=== PATIENT | male | born 1975 | race Caucasian/White ===

== ENCOUNTER 2016-07-03 10:06 | Emergency (ER) | payer MEDICAID ==
--- NOTE | 2016-07-03 10:31 | ER Document Report ---
ED Medical Screen (RME) - General Chief Complaint: Numbness of Arm Stated Complaint: LEFT ARM PAIN/NUMBNESS Time Seen by Provider: 07/03/16 10:28 Notes: Patient is complaining of a burning pain and numbness of the left upper arm for the past few days. Also has noticed the same sensation in the right lateral upper chest, anterior axillary line area, as well. He recalls no injury. Has never had this happen before. Patient is a type II diabetic on insulin and pills and has been out of his medication since November because he was dropped by Medicaid. Denies any vomiting or diarrhea. Denies any cough or cold or chest congestion. No chest pain. No shortness of breath or difficulty breathing. No fevers. TRAVEL OUTSIDE OF THE [place] IN LAST 30 DAYS: No COUNTRY TRAVELED TO/FROM: [facility] - Related Data Allergies/Adverse Reactions: No Known Allergies Allergy (Verified 07/03/16 10:08) Past Medical History - Past Medical History Cardiac Medical History: Reports: Hx Hypercholesterolemia, Hx Hypertension Neurological Medical History: Reports: Hx Migraine Endocrine Medical History: Reports: Hx Diabetes Mellitus Type 2 Renal/ Medical History: Denies: Hx Peritoneal Dialysis GI Medical History: Reports: Hx Gastroesophageal Reflux Disease Psychiatric Medical History: Denies: Hx Depression - Immunizations Immunizations up to date: Yes Hx Diphtheria, Pertussis, Tetanus Vaccination: No Physical Exam - Vital signs Vitals: Temp Pulse Resp BP Pulse Ox 98.0 F 89 18 135/94 H 98 07/03/16 10:08 07/03/16 10:08 07/03/16 10:08 07/03/16 10:08 07/03/16 10:08 Course - Vital Signs Vital signs: Temp Pulse Resp BP Pulse Ox 98.0 F 89 18 135/94 H 98 07/03/16 10:08 07/03/16 10:08 07/03/16 10:08 07/03/16 10:08 07/03/16 10:08
[2016-07-03 11:00] LABS: ABSOLUTE BASOPHILS # (AUTO) 0.1 10^3/uL (0.0-0.2); ABSOLUTE EOSINOPHILS # (AUTO) 0.1 10^3/uL (0.0-0.6); ABSOLUTE LYMPHOCYTES (AUTO) 3.1 10^3/uL (0.5-4.7); ABSOLUTE MONOCYTES (AUTO) 0.5 10^3/uL (0.1-1.4); ABSOLUTE NEUT (AUTO) 3.8 10^3/uL (1.7-8.2); BASOPHILS % (AUTO) 0.7 % (0-2); EOSINOPHILS % (AUTO) 1.4 % (0-6); HEMOGLOBIN 16.3 g/dL (13.5-17.0); HGB HCT DIFFERENCE 0.9; LYMPHOCYTES % (AUTO) 40.9 % (13-45); MEAN CORPUSCULAR HEMOGLOBIN 30.3 pg (27.0-33.4); MEAN CORPUSCULAR HGB CONC 33.9 g/dL (32.0-36.0); MEAN CORPUSCULAR VOLUME 89 fl (80-97); MONOCYTES % (AUTO) 6.3 % (3-13); RED BLOOD COUNT 5.37 10^6/uL (4.35-5.55); RED CELL DISTRIBUTION WIDTH 13.6 % (11.5-14.0); SEGMENTED NEUTROPHILS % (AUTO) 50.7 % (42-78); WHITE BLOOD COUNT 7.6 10^3/uL (4.0-10.5)
[2016-07-03 11:26] LABS: ALANINE AMINOTRANSFERASE 40 U/L (21-72); ALBUMIN 4.5 g/dL (3.5-5.0); ALKALINE PHOSPHATASE 75 U/L (38-126); ANION GAP 15 (5-19); ASPARTATE AMINO TRANSFERASE 20 U/L (17-59); BILIRUBIN,DIRECT 0.3 mg/dL (0.0-0.4); BILIRUBIN,TOTAL 0.6 mg/dL (0.2-1.3); BLOOD UREA NITROGEN 11 mg/dL (7-20); CALCIUM 10.2 mg/dL (8.4-10.2); CARBON DIOXIDE 23 mmol/L (22-30); CHLORIDE 100 mmol/L (98-107); CREATININE RESULT 0.56 mg/dL (0.52-1.25); MAGNESIUM 1.9 mg/dL (1.6-2.3); SODIUM 137.8 mmol/L (137-145); TOTAL PROTEIN 7.6 g/dL (6.3-8.2)
[2016-07-03 11:36] LABS: GLUCOSE 433 mg/dL (75-110)
[2016-07-03] MEDS ORDERED: INSULIN REG, HUMAN 100 UNIT/ML 3 ML VIAL (PYX) SUBCUT ONE (12:09)
[2016-07-03] MEDS ORDERED: METFORMIN HCL 500 MG TABLET PO ONE (12:39)
--- NOTE | 2016-07-03 12:43 | ER Document Report ---
ED General - General Chief Complaint: Numbness of Arm Stated Complaint: LEFT ARM PAIN/NUMBNESS Time Seen by Provider: 07/03/16 10:28 Notes: Patient presents to the emergency department with c/o burning pain, numbness to left deltoid area. Reports same feeling in the right side of his chest, axillary area. Denies trauma. Reports he is worried it is due to his DMII. Patient reports he has been out of his medication for DM and HTN since November. He just obtained his medicaid and has an appointment with Dr Garrido next week. Shortness of breath chest pain. Reports he has never had chickenpox. He denies fever vomiting diarrhea. Denies weakness. TRAVEL OUTSIDE OF THE [place] IN LAST 30 DAYS: No COUNTRY TRAVELED TO/FROM: [facility] - HPI Onset: Last week Onset/Duration: Persistent Quality of pain: Burning Pain Level: 3 - Related Data Allergies/Adverse Reactions: No Known Allergies Allergy (Verified 07/03/16 10:08) Past Medical History - General Information source: Patient - Social History Smoking Status: Current Every Day Smoker Cigarette use (# per day): Yes Frequency of alcohol use: Occasional Drug Abuse: Marijuana Lives with: Family Family History: Other - Father: CAD; Grandfather: "rare blood disorder" Patient has suicidal ideation: No Patient has homicidal ideation: No - Past Medical History Cardiac Medical History: Reports: Hx Hypercholesterolemia, Hx Hypertension Neurological Medical History: Reports: Hx Migraine Endocrine Medical History: Reports: Hx Diabetes Mellitus Type 2 Renal/ Medical History: Denies: Hx Peritoneal Dialysis GI Medical History: Reports: Hx Gastroesophageal Reflux Disease Psychiatric Medical History: Denies: Hx Depression - Immunizations Immunizations up to date: Yes Hx Diphtheria, Pertussis, Tetanus Vaccination: No Hx Pneumococcal Vaccination: 10/05/13 Review of Systems - Review of Systems Notes: Review HPI for review of systems., All other systems negative Physical Exam - Vital signs Vitals: Temp Pulse Resp BP Pulse Ox 98.0 F 89 18 135/94 H 98 07/03/16 10:08 07/03/16 10:08 07/03/16 10:08 07/03/16 10:08 07/03/16 10:08 - Notes Notes: PHYSICAL EXAMINATION: GENERAL: Well-appearing and in no acute distress HEAD: Atraumatic, normocephalic. EYES: Pupils equal round and reactive to light, extraocular movements intact, sclera anicteric, conjunctiva are normal. ENT: nares patent, oropharynx clear without exudates. Moist mucous membranes. speaks clear NECK: Normal range of motion, supple without lymphadenopathy LUNGS: CTAB and equal. No wheezes rales or rhonchi. HEART: Regular rate and rhythm without murmurs ABDOMEN: Soft, no tenderness. No guarding, no rebound EXTREMITIES: Normal range of motion, no pitting edema. No cyanosis. 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 Normal sensory/motor exams. PSYCH: Normal mood, normal affect. 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 He reports he usually runs between 250-350, if he gets below 250 he doesn't feel good. Consulted dr ardon per apc guidelines, he advised insulin. pt came to nurses station reports he needs to leave due to a family emegency. Will treat pt with some SQ Insulin, provide with prescriptions for medication until he can be treated by dr garrido next thursday. Pt verbalized understanding oF Plan of care and agrees, Dr ardon updated and agrees with plan. - Vital Signs Vital signs: Temp Pulse Resp BP Pulse Ox 97.9 F 77 18 144/98 H 98 07/03/16 13:03 07/03/16 13:03 07/03/16 10:09 07/03/16 13:03 07/03/16 13:03 - Laboratory Result Diagrams: 07/03/16 10:30 07/03/16 10:30 Laboratory results interpreted by me: 07/03/16 10:30 Glucose 433 H* Discharge - Discharge Clinical Impression: parathesia left outer arm, Hyperglycemia due to type 1 diabetes mellitus, History of high blood pressure Condition: Stable Disposition: HOME, SELF-CARE Instructions: Diabetes ([facility]), High Blood Pressure ([facility]), Insulin ([facility]), Glucophage ([facility]) Additional Instructions: *You have been evaluated for feeling of numbness to your left outer arm, hyperglycemia with history of diabetes *Take medication as prescribed *Monitor your blood pressure and glucose *Follow up with Dr Garrido as scheduled *Return to ED for worsening condition, changes, needs Prescriptions: Lisinopril [Prinivil 2.5 mg Tablet] 2.5 mg PO DAILY #15 tablet Metformin HCl 1,000 mg PO BID #30 tablet NPH, Human Insulin Isophane [Novolin N (NPH) Insulin 100 unit/mL] 35 unit SUBCUT BID #100 ml Forms: Elevated Blood Pressure, Return to School
[2016-07-03 13:08] VITALS: BP 144/98
== END 2016-07-03 13:13 | disposition home or self-care (01) ==
LOC: ER 10:06
DX: R20.2 Paresthesia of skin (principal); E10.65 Type 1 diabetes mellitus with hyperglycemia; I10 Essential (primary) hypertension; Z91.14 Patient's other noncompliance with medication regimen; R20.0 Anesthesia of skin; F17.210 Nicotine dependence, cigarettes, uncomplicated
CPT/HCPCS: 99284; 36415; 83735; 85025; 80053; J3490

== ENCOUNTER 2016-07-29 12:43 | Emergency (ER) | payer MEDICAID ==
[2016-07-29] MEDS ORDERED: OXYCODONE-ACETAMINOPHEN 5-325 MG TABLET PO ONE (13:56)
--- NOTE | 2016-07-29 14:01 | ER Document Report ---
ED Medical Screen (RME) - General Chief Complaint: Chest Pain Stated Complaint: CHEST PAIN Time Seen by Provider: 07/29/16 13:53 Mode of Arrival: Ambulatory Information source: Patient Notes: Patient is a 41-year-old male with diabetes, hypertension, hyperlipidemia and GERD who presents to the ER today for chest pain that started yesterday. Patient states that it is sharp in nature and comes and goes, give him some nausea but he denies any shortness of breath, cough, fever, chills, recent illness. He denies history of heart attack or stroke. TRAVEL OUTSIDE OF THE [place] IN LAST 30 DAYS: No COUNTRY TRAVELED TO/FROM: [facility] - Related Data Allergies/Adverse Reactions: No Known Allergies Allergy (Verified 07/29/16 12:57) Past Medical History - General Information source: Patient - Social History Chew tobacco use (# tins/day): No Frequency of alcohol use: None Drug Abuse: None - Past Medical History Cardiac Medical History: Reports: Hx Hypercholesterolemia, Hx Hypertension Neurological Medical History: Reports: Hx Migraine Endocrine Medical History: Reports: Hx Diabetes Mellitus Type 2 Renal/ Medical History: Denies: Hx Peritoneal Dialysis GI Medical History: Reports: Hx Gastroesophageal Reflux Disease Psychiatric Medical History: Denies: Hx Depression - Immunizations Immunizations up to date: Yes Hx Diphtheria, Pertussis, Tetanus Vaccination: No Review of Systems - Review of Systems Cardiovascular: No symptoms reported Respiratory: No symptoms reported Gastrointestinal: No symptoms reported Physical Exam - Vital signs Vitals: Temp Pulse Resp BP Pulse Ox 98.1 F 76 20 122/81 98 07/29/16 12:57 07/29/16 12:57 07/29/16 12:57 07/29/16 12:57 07/29/16 12:57 - Notes Notes: PHYSICAL EXAMINATION: GENERAL:uncomfortable, but in no acute distress. LUNGS: CTAB and equal. No wheezes rales or rhonchi. HEART: Regular rate and rhythm without murmurs Course - Vital Signs Vital signs: Temp Pulse Resp BP Pulse Ox 98.1 F 76 16 122/81 98 07/29/16 12:57 07/29/16 12:57 07/29/16 13:44 07/29/16 12:57 07/29/16 12:57
[2016-07-29 14:30] LABS: ABSOLUTE EOSINOPHILS # (AUTO) 0.1 10^3/uL (0.0-0.6); ABSOLUTE LYMPHOCYTES (AUTO) 3.1 10^3/uL (0.5-4.7); ABSOLUTE MONOCYTES (AUTO) 0.5 10^3/uL (0.1-1.4); ABSOLUTE NEUT (AUTO) 4.1 10^3/uL (1.7-8.2); BASOPHILS % (AUTO) 0.6 % (0-2); EOSINOPHILS % (AUTO) 1.9 % (0-6); HEMATOCRIT 43.7 % (37.9-51.0); HEMOGLOBIN 14.5 g/dL (13.5-17.0); HGB HCT DIFFERENCE -0.2; LYMPHOCYTES % (AUTO) 39.1 % (13-45); MEAN CORPUSCULAR HEMOGLOBIN 29.4 pg (27.0-33.4); MEAN CORPUSCULAR HGB CONC 33.3 g/dL (32.0-36.0); MEAN CORPUSCULAR VOLUME 88 fl (80-97); MONOCYTES % (AUTO) 6.9 % (3-13); RED BLOOD COUNT 4.94 10^6/uL (4.35-5.55); RED CELL DISTRIBUTION WIDTH 13.5 % (11.5-14.0); SEGMENTED NEUTROPHILS % (AUTO) 51.5 % (42-78); WHITE BLOOD COUNT 7.9 10^3/uL (4.0-10.5)
[2016-07-29 14:47] LABS: ALANINE AMINOTRANSFERASE 23 U/L (21-72); ALBUMIN 3.9 g/dL (3.5-5.0); ALKALINE PHOSPHATASE 57 U/L (38-126); ANION GAP 10 (5-19); ASPARTATE AMINO TRANSFERASE 13 U/L (17-59); BILIRUBIN,DIRECT 0.3 mg/dL (0.0-0.4); BILIRUBIN,TOTAL 0.5 mg/dL (0.2-1.3); BLOOD UREA NITROGEN 8 mg/dL (7-20); CALCIUM 9.3 mg/dL (8.4-10.2); CARBON DIOXIDE 28 mmol/L (22-30); CHLORIDE 103 mmol/L (98-107); CREATINE KINASE 47 U/L (55-170); CREATININE RESULT 0.55 mg/dL (0.52-1.25); GLUCOSE 170 mg/dL (75-110); LIPASE 79.9 U/L (23-300); POTASSIUM 4.3 mmol/L (3.6-5.0); SODIUM 140.9 mmol/L (137-145); TOTAL PROTEIN 7.1 g/dL (6.3-8.2)
[2016-07-29 14:59] LABS: CREATINE KINASE MB 0.24 ng/mL (<4.55)
[2016-07-29 15:00] LABS: TROPONIN I < 0.012 ng/mL
--- NOTE | 2016-07-29 15:02 | RADIOLOGY REPORT (SQ) ---
EXAM DESCRIPTION: CHEST SINGLE VIEW COMPLETED DATE/TIME: 07/29/2016 2:18 pm REASON FOR STUDY: chest pain COMPARISON: 12/31/2015. EXAM PARAMETERS: NUMBER OF VIEWS: One view. TECHNIQUE: Single frontal radiographic view of the chest acquired. RADIATION DOSE: NA LIMITATIONS: None. FINDINGS: LUNGS AND PLEURA: No opacities, masses or pneumothorax. No pleural effusion. MEDIASTINUM AND HILAR STRUCTURES: No masses. Contour normal. HEART AND VASCULAR STRUCTURES: Heart normal in size. Normal vasculature. BONES: No acute findings. HARDWARE: None in the chest. OTHER: No other significant finding. IMPRESSION: NO ACUTE RADIOGRAPHIC FINDING IN THE CHEST. TECHNICAL DOCUMENTATION: JOB ID: [id number]
[2016-07-29] MEDS ORDERED: METOCLOPRAMIDE HCL ORAL SOLN 10 MG/10 ML UDCUP PO ONE (15:13)
[2016-07-29] MEDS ORDERED: LIDOCAINE 2% VISCOUS SOLN 20 ML UDCUP PO ONE (15:13)
[2016-07-29] MEDS ORDERED: MAG HYDROX/AL HYDROX/SIMETH SUSP 30 ML UDCUP PO ONE (15:13)
--- NOTE | 2016-07-29 15:13 | ER Document Report ---
ED Cardiac - General Chief Complaint: Chest Pain Stated Complaint: CHEST PAIN Time Seen by Provider: 07/29/16 13:53 Mode of Arrival: Ambulatory Information source: Patient Notes: Patient is a 41-year-old male with hypertension, diabetes, hyperlipidemia, GERD who presents to the ER today for chest pain that began yesterday, intermittent and sharp in nature in the center of his chest causing some nausea. He denies any vomiting, shortness of breath, radiation of the pain anywhere. He states he has been under a lot of stress recently. He denies any history of heart attack or stroke. He does take his medications regularly, but did not take them today because of the nausea. TRAVEL OUTSIDE OF THE [place] IN LAST 30 DAYS: No COUNTRY TRAVELED TO/FROM: [facility] - Related Data Allergies/Adverse Reactions: No Known Allergies Allergy (Verified 07/29/16 12:57) Past Medical History - General Information source: Patient - Social History Smoking Status: Never Smoker Chew tobacco use (# tins/day): No Frequency of alcohol use: None Drug Abuse: None Family History: Other - Father: CAD; Grandfather: "rare blood disorder" Patient has suicidal ideation: No Patient has homicidal ideation: No - Past Medical History Cardiac Medical History: Reports: Hx Hypercholesterolemia, Hx Hypertension Neurological Medical History: Reports: Hx Migraine Endocrine Medical History: Reports: Hx Diabetes Mellitus Type 2 Renal/ Medical History: Denies: Hx Peritoneal Dialysis GI Medical History: Reports: Hx Gastroesophageal Reflux Disease Psychiatric Medical History: Denies: Hx Depression - Immunizations Immunizations up to date: Yes Hx Diphtheria, Pertussis, Tetanus Vaccination: No Hx Pneumococcal Vaccination: 10/05/13 Review of Systems - Review of Systems Constitutional: No symptoms reported EENT: No symptoms reported Cardiovascular: See HPI Respiratory: No symptoms reported Gastrointestinal: See HPI Genitourinary: No symptoms reported Male Genitourinary: No symptoms reported Musculoskeletal: No symptoms reported Skin: No symptoms reported Hematologic/Lymphatic: No symptoms reported Neurological/Psychological: No symptoms reported Physical Exam - Vital signs Vitals: Temp Pulse Resp BP Pulse Ox 98.1 F 76 20 122/81 98 07/29/16 12:57 07/29/16 12:57 07/29/16 12:57 07/29/16 12:57 07/29/16 12:57 - Notes Notes: PHYSICAL EXAMINATION: GENERAL: Mildly uncomfortable, but in no acute distress. HEAD: Atraumatic, normocephalic. EYES: Pupils equal round and reactive to light, extraocular movements intact, sclera anicteric, conjunctiva are normal. NECK: Normal range of motion, supple without lymphadenopathy LUNGS: CTAB and equal. No wheezes rales or rhonchi. HEART: Regular rate and rhythm without murmurs ABDOMEN: Soft, mild epigastric tenderness. No guarding, no rebound BACK: no vertebral tenderness, normal ROM GI/: no CVA tenderness EXTREMITIES: Normal range of motion, no pitting edema. No cyanosis. NEUROLOGICAL: Cranial nerves grossly intact. Normal sensory/motor exams. PSYCH: Normal mood, normal affect. SKIN: Warm, Dry, normal turgor, no rashes or lesions noted Course - Re-evaluation Re-evalutation: 07/29/16 16:31 Lab work is unremarkable today including normal cardiac enzymes, EKG revealing normal sinus rhythm with no evidence of ischemia, chest x-ray without acute abnormality, patient is completely chest pain-free after GI cocktail. Patient does not want to stay here even though he has never had a stress test and has risk factors for cardiac disease. He would like to go home and treat GERD, stomach ulcer. I did advise him that with his risk factors For cardiac disease , it may be advisable to stay in the hospital, but he declines. He states with any worsening symptoms he will return immediately. - Vital Signs Vital signs: Temp Pulse Resp BP Pulse Ox 98.1 F 76 16 122/81 98 07/29/16 12:57 07/29/16 12:57 07/29/16 13:44 07/29/16 12:57 07/29/16 12:57 - Laboratory Result Diagrams: 07/29/16 14:00 07/29/16 14:00 Laboratory results interpreted by me: 07/29/16 07/29/16 14:00 15:22 Glucose 170 H AST 13 L Creatine Kinase 47 L Urine Glucose (UA) 150 H Urine Urobilinogen 2.0 H Discharge - Discharge Clinical Impression: Epigastric pain Chest pain Qualifiers: Chest pain type: unspecified Qualified Code(s): R07.9 - Chest pain, unspecified Condition: Stable Disposition: HOME, SELF-CARE Instructions: Reflux Disease (GERD) ([facility]) Additional Instructions: Return immediately for any new or worsening symptoms. Follow up with primary care provider, call tomorrow to make followup appointment. Prescriptions: Omeprazole Magnesium [Prilosec Otc] 20 mg PO BID #20 tablet. Sucralfate [Carafate 1 gm Tablet] 1 gm PO ACHS #40 tablet Forms: Return to Work
[2016-07-29 15:38] LABS: APPEARANCE,URINE CLEAR; BILIRUBIN,URINE NEGATIVE (NEGATIVE); GLUCOSE, URINE 150 mg/dL (NEGATIVE); KETONES,URINE NEGATIVE (NEGATIVE); LEUKOCYTE ESTERASE,URINE NEGATIVE (NEGATIVE); NITRITE,URINE NEGATIVE (NEGATIVE); PROTEIN,URINE NEGATIVE (NEGATIVE); URINE SPECIFIC GRAVITY 1.018
[2016-07-29 15:50] LABS: URINE BARBITURATES SCREEN NEGATIVE; URINE METHADONE SCREEN NEGATIVE; URINE OPIATES LOW NEGATIVE; URINE PHENCYCLIDINE SCREEN NEGATIVE
[2016-07-29] MEDS ORDERED: FAMOTIDINE 20 MG TABLET PO ONE (16:25)
[2016-07-29] MEDS ORDERED: SUCRALFATE 1 GM TABLET PO ONE (16:25)
[2016-07-29 17:07] VITALS: BP 145/105
--- NOTE | 2016-07-29 22:37 | EKG REPORT ---
SEVERITY:- NORMAL ECG - SINUS RHYTHM : Confirmed by: Lurdes Hightower 29-Jul-2016 22:36:18
== END 2016-07-29 17:07 | disposition home or self-care (01) ==
LOC: ER 12:43
DX: R10.13 Epigastric pain (principal); R07.9 Chest pain, unspecified; I10 Essential (primary) hypertension; E11.9 Type 2 diabetes mellitus without complications; E78.5 Hyperlipidemia, unspecified; K21.9 Gastro-esophageal reflux disease without esophagitis
CPT/HCPCS: 93005; 99285; 36415; 82553; 82550; 83690; 85025; 80053; 81001; 84484; 80307; 71010; 93010; J3490 ×5

== ENCOUNTER 2016-09-05 12:42 | Emergency (ER) | payer MEDICAID ==
[2016-09-05] MEDS ORDERED: ASPIRIN 81 MG TABLET, CHEWABLE PO ONE (14:42)
--- NOTE | 2016-09-05 14:43 | ER Document Report ---
ED Medical Screen (RME) - General Chief Complaint: Chest Pain Stated Complaint: BODY PAIN Time Seen by Provider: 09/05/16 14:12 Mode of Arrival: Medic Information source: Patient Notes: Patient presents complaining of generalized body pain for several months. Patient does complain of chest pain that started yesterday. Patient does report some mild shortness of breath with nausea. Patient states he last vomited yesterday. Patient does state that he has felt faint yesterday. hx: Tension, diabetes, dyslipidemia TRAVEL OUTSIDE OF THE [place] IN LAST 30 DAYS: No COUNTRY TRAVELED TO/FROM: [facility] - Related Data Allergies/Adverse Reactions: No Known Allergies Allergy (Verified 09/05/16 12:52) Past Medical History - Social History Frequency of alcohol use: None Drug Abuse: None - Past Medical History Cardiac Medical History: Reports: Hx Hypercholesterolemia, Hx Hypertension Neurological Medical History: Reports: Hx Migraine Endocrine Medical History: Reports: Hx Diabetes Mellitus Type 2 Renal/ Medical History: Denies: Hx Peritoneal Dialysis GI Medical History: Reports: Hx Gastroesophageal Reflux Disease Psychiatric Medical History: Denies: Hx Depression - Immunizations Immunizations up to date: Yes Hx Diphtheria, Pertussis, Tetanus Vaccination: No Physical Exam - Vital signs Vitals: Temp Pulse Resp BP Pulse Ox 98.1 F 98 18 137/101 H 99 09/05/16 12:52 09/05/16 12:52 09/05/16 12:52 09/05/16 12:52 09/05/16 12:52 - Cardiovascular Rhythm: Regular Heart sounds: S1 appreciated, S2 appreciated Course - Vital Signs Vital signs: Temp Pulse Resp BP Pulse Ox 98.1 F 98 18 137/101 H 99 09/05/16 12:52 09/05/16 12:52 09/05/16 12:52 09/05/16 12:52 09/05/16 12:52
[2016-09-05 15:36] LABS: ABSOLUTE EOSINOPHILS # (AUTO) 0.1 10^3/uL (0.0-0.6); ABSOLUTE LYMPHOCYTES (AUTO) 3.1 10^3/uL (0.5-4.7); ABSOLUTE MONOCYTES (AUTO) 0.5 10^3/uL (0.1-1.4); ABSOLUTE NEUT (AUTO) 3.7 10^3/uL (1.7-8.2); BASOPHILS % (AUTO) 0.4 % (0-2); EOSINOPHILS % (AUTO) 1.9 % (0-6); HEMATOCRIT 45.4 % (37.9-51.0); HEMOGLOBIN 15.5 g/dL (13.5-17.0); HGB HCT DIFFERENCE 1.1; LYMPHOCYTES % (AUTO) 41.2 % (13-45); MEAN CORPUSCULAR HEMOGLOBIN 29.6 pg (27.0-33.4); MEAN CORPUSCULAR HGB CONC 34.2 g/dL (32.0-36.0); MEAN CORPUSCULAR VOLUME 87 fl (80-97); MONOCYTES % (AUTO) 6.5 % (3-13); RED BLOOD COUNT 5.25 10^6/uL (4.35-5.55); RED CELL DISTRIBUTION WIDTH 13.1 % (11.5-14.0); WHITE BLOOD COUNT 7.4 10^3/uL (4.0-10.5)
--- NOTE | 2016-09-05 15:46 | RADIOLOGY REPORT (SQ) ---
EXAM DESCRIPTION: CHEST PA/LAT COMPLETED DATE/TIME: 09/05/2016 3:32 pm REASON FOR STUDY: cp COMPARISON: December 2015 EXAM PARAMETERS: NUMBER OF VIEWS: two views TECHNIQUE: Digital Frontal and Lateral radiographic views of the chest acquired. RADIATION DOSE: NA LIMITATIONS: none FINDINGS: LUNGS AND PLEURA: No opacities, masses or pneumothorax. No pleural effusion. MEDIASTINUM AND HILAR STRUCTURES: No masses or contour abnormalities. HEART AND VASCULAR STRUCTURES: Heart normal size. No evidence for failure. BONES: No acute findings. HARDWARE: None in the chest. OTHER: No other significant finding. IMPRESSION: NO SIGNIFICANT RADIOGRAPHIC FINDING IN THE CHEST. TECHNICAL DOCUMENTATION: JOB ID: [id number] [email or web address]- All Rights Reserved
[2016-09-05 15:54] LABS: ALANINE AMINOTRANSFERASE 29 U/L (21-72); ALBUMIN 4.3 g/dL (3.5-5.0); ALKALINE PHOSPHATASE 45 U/L (38-126); ANION GAP 11 (5-19); ASPARTATE AMINO TRANSFERASE 12 U/L (17-59); BILIRUBIN,DIRECT 0.3 mg/dL (0.0-0.4); BILIRUBIN,TOTAL 0.7 mg/dL (0.2-1.3); BLOOD UREA NITROGEN 8 mg/dL (7-20); CARBON DIOXIDE 30 mmol/L (22-30); CHLORIDE 102 mmol/L (98-107); CREATINE KINASE 46 U/L (55-170); CREATININE RESULT 0.67 mg/dL (0.52-1.25); GLUCOSE 104 mg/dL (75-110); MAGNESIUM 2.2 mg/dL (1.6-2.3); POTASSIUM 4.4 mmol/L (3.6-5.0); SODIUM 143.2 mmol/L (137-145); TOTAL PROTEIN 7.6 g/dL (6.3-8.2)
[2016-09-05 16:11] LABS: CREATINE KINASE MB < 0.22 ng/mL (<4.55); TROPONIN I < 0.012 ng/mL
--- NOTE | 2016-09-05 16:50 | ER Document Report ---
ED Cardiac - General Chief Complaint: Chest Pain Stated Complaint: BODY PAIN Time Seen by Provider: 09/05/16 14:12 Mode of Arrival: Medic Information source: Patient Notes: Patient is a 41-year-old male who presents to the ER today for all over body pain including neuropathy, going up to his lower abdomen, going up his chest, going up to his head, going into his arms. Patient has had this going on for 1 month but states it is worsening. His primary care provider has already started him on gabapentin and has increased the dosage multiple times tried to control his symptoms. Patient has a history of heart attack or stroke. He does admit to some shortness of breath and some nausea. TRAVEL OUTSIDE OF THE [place] IN LAST 30 DAYS: No COUNTRY TRAVELED TO/FROM: [facility] - Related Data Allergies/Adverse Reactions: No Known Allergies Allergy (Verified 09/05/16 12:52) Past Medical History - General Information source: Patient - Social History Smoking Status: Never Smoker Frequency of alcohol use: None Drug Abuse: None Family History: Other - Father: CAD; Grandfather: "rare blood disorder" - Past Medical History Cardiac Medical History: Reports: Hx Hypercholesterolemia, Hx Hypertension Neurological Medical History: Reports: Hx Migraine Endocrine Medical History: Reports: Hx Diabetes Mellitus Type 2 Renal/ Medical History: Denies: Hx Peritoneal Dialysis GI Medical History: Reports: Hx Gastroesophageal Reflux Disease Psychiatric Medical History: Denies: Hx Depression - Immunizations Immunizations up to date: Yes Hx Diphtheria, Pertussis, Tetanus Vaccination: No Hx Pneumococcal Vaccination: 10/05/13 Review of Systems - Review of Systems Constitutional: No symptoms reported EENT: No symptoms reported Cardiovascular: See HPI Respiratory: No symptoms reported Gastrointestinal: No symptoms reported Genitourinary: No symptoms reported Male Genitourinary: No symptoms reported Musculoskeletal: No symptoms reported Skin: No symptoms reported Hematologic/Lymphatic: No symptoms reported Neurological/Psychological: No symptoms reported Physical Exam - Vital signs Vitals: Temp Pulse Resp BP Pulse Ox 98.1 F 98 18 137/101 H 99 09/05/16 12:52 09/05/16 12:52 09/05/16 12:52 09/05/16 12:52 09/05/16 12:52 - Notes Notes: PHYSICAL EXAMINATION: GENERAL: Appears uncomfortable, but in no acute distress. HEAD: Atraumatic, normocephalic. EYES: Pupils equal round and reactive to light, extraocular movements intact, sclera anicteric, conjunctiva are normal. ENT: ear canals without erythema or foreign body, TMs pearly duran with good bony landmarks, nares patent, oropharynx clear without exudates. Moist mucous membranes. NECK: Normal range of motion, supple without lymphadenopathy LUNGS: CTAB and equal. No wheezes rales or rhonchi. HEART: Regular rate and rhythm without murmurs ABDOMEN: Soft, no tenderness. No guarding, no rebound BACK: no vertebral tenderness, normal ROM GI/: no CVA tenderness EXTREMITIES: No tenderness to lower extremities at all, good and equal pulses to all extremities, normal range of motion, no pitting edema. No cyanosis. NEUROLOGICAL: Cranial nerves grossly intact. Normal sensory/motor exams. PSYCH: Normal mood, normal affect. SKIN: Warm, Dry, normal turgor, no rashes or lesions noted Course - Re-evaluation Re-evalutation: 09/05/16 17:24 09/05/16 17:25 Lab work is completely unremarkable today including normal cardiac enzymes, EKG reveals a normal sinus rhythm at a rate of 68 bpm. Patient is complaining of chronic pain as well as all over body pain. I have no explanation for his symptoms except for his neuropathy today. His cardiac workup is negative. I have advised him to follow-up with his primary care provider. He is unhappy with this but is stable for discharge. - Vital Signs Vital signs: Temp Pulse Resp BP Pulse Ox 97.6 F 70 16 141/97 H 97 09/05/16 17:25 09/05/16 17:25 09/05/16 17:25 09/05/16 17:25 09/05/16 17:25 - Laboratory Result Diagrams: 09/05/16 15:22 09/05/16 15:22 Laboratory results interpreted by me: 09/05/16 15:22 AST 12 L Creatine Kinase 46 L Discharge - Discharge Clinical Impression: Neuropathy Pain, chronic Qualifiers: Chronic pain type: other chronic pain Qualified Code(s): G89.29 - Other chronic pain Chest pain Qualifiers: Chest pain type: unspecified Qualified Code(s): R07.9 - Chest pain, unspecified Condition: Stable Disposition: HOME, SELF-CARE Additional Instructions: Return immediately for any new or worsening symptoms. Follow up with primary care provider, call tomorrow to make followup appointment. Referrals: LIZZY KESSLER, DO [Primary Care Provider] - Follow up as needed
[2016-09-05] MEDS ORDERED: KETOROLAC TROMETHAMINE INJ/PF 30 MG/1 ML SDV IV ONE (17:20)
[2016-09-05] MEDS ORDERED: MAG HYDROX/AL HYDROX/SIMETH SUSP 30 ML UDCUP PO ONE (17:27)
[2016-09-05] MEDS ORDERED: METOCLOPRAMIDE HCL ORAL SOLN 10 MG/10 ML UDCUP PO ONE (17:27)
[2016-09-05] MEDS ORDERED: LIDOCAINE 2% VISCOUS SOLN 20 ML UDCUP PO ONE (17:27)
[2016-09-05 17:28] VITALS: BP 141/97
--- NOTE | 2016-09-07 13:45 | EKG REPORT ---
SEVERITY:- NORMAL ECG - SINUS RHYTHM : Confirmed by: Harriet Lyons MD 07-Sep-2016 13:45:17
== END 2016-09-05 17:53 | disposition home or self-care (01) ==
LOC: ER 12:42
DX: G62.9 Polyneuropathy, unspecified (principal); R07.9 Chest pain, unspecified; G89.29 Other chronic pain; E78.00 Pure hypercholesterolemia, unspecified; I10 Essential (primary) hypertension; E11.9 Type 2 diabetes mellitus without complications; K21.9 Gastro-esophageal reflux disease without esophagitis
CPT/HCPCS: 93005; 99285; 96374; 36415; 82553; 82550; 83735; 85025; 80053; 84484; 71020; 93010; J3490 ×3; J1885

== ENCOUNTER 2016-09-08 16:03 | Emergency (ER) | payer MEDICAID ==
[2016-09-08] MEDS ORDERED: ASPIRIN 325 MG TABLET PO ONE (16:36)
--- NOTE | 2016-09-08 16:38 | ER Document Report ---
ED Medical Screen (RME) - General Chief Complaint: Chest Pain Stated Complaint: CHEST PAIN Time Seen by Provider: 09/08/16 16:33 Mode of Arrival: Wheelchair Information source: Patient TRAVEL OUTSIDE OF THE [place] IN LAST 30 DAYS: No COUNTRY TRAVELED TO/FROM: [facility] Patient complains to provider of: cp Onset: Other - pt with multiple cardiac risk factors with intermittent cp for the past several days. Saw his PCP today who recommended [facility]. - Related Data Allergies/Adverse Reactions: No Known Allergies Allergy (Verified 09/08/16 16:14) Past Medical History - Past Medical History Cardiac Medical History: Reports: Hx Hypercholesterolemia, Hx Hypertension Neurological Medical History: Reports: Hx Migraine Endocrine Medical History: Reports: Hx Diabetes Mellitus Type 2 Renal/ Medical History: Denies: Hx Peritoneal Dialysis GI Medical History: Reports: Hx Gastroesophageal Reflux Disease Psychiatric Medical History: Denies: Hx Depression - Immunizations Immunizations up to date: Yes Hx Diphtheria, Pertussis, Tetanus Vaccination: No Physical Exam - Vital signs Vitals: Temp Pulse Resp BP Pulse Ox 97.6 F 91 18 144/107 H 100 09/08/16 16:17 09/08/16 16:17 09/08/16 16:17 09/08/16 16:17 09/08/16 16:17 Course - Vital Signs Vital signs: Temp Pulse Resp BP Pulse Ox 97.6 F 91 18 144/107 H 100 09/08/16 16:17 09/08/16 16:17 09/08/16 16:17 09/08/16 16:17 09/08/16 16:17
[2016-09-08 17:04] LABS: ABSOLUTE BASOPHILS # (AUTO) 0.1 10^3/uL (0.0-0.2); ABSOLUTE EOSINOPHILS # (AUTO) 0.1 10^3/uL (0.0-0.6); ABSOLUTE LYMPHOCYTES (AUTO) 3.1 10^3/uL (0.5-4.7); ABSOLUTE MONOCYTES (AUTO) 0.5 10^3/uL (0.1-1.4); ABSOLUTE NEUT (AUTO) 4.6 10^3/uL (1.7-8.2); BASOPHILS % (AUTO) 0.6 % (0-2); EOSINOPHILS % (AUTO) 1.6 % (0-6); HEMATOCRIT 49.9 % (37.9-51.0); HEMOGLOBIN 16.9 g/dL (13.5-17.0); HGB HCT DIFFERENCE 0.8; LYMPHOCYTES % (AUTO) 36.6 % (13-45); MEAN CORPUSCULAR HEMOGLOBIN 29.7 pg (27.0-33.4); MEAN CORPUSCULAR HGB CONC 33.9 g/dL (32.0-36.0); MEAN CORPUSCULAR VOLUME 88 fl (80-97); MONOCYTES % (AUTO) 6.5 % (3-13); RED BLOOD COUNT 5.68 10^6/uL (4.35-5.55); RED CELL DISTRIBUTION WIDTH 13.2 % (11.5-14.0); SEGMENTED NEUTROPHILS % (AUTO) 54.7 % (42-78); WHITE BLOOD COUNT 8.4 10^3/uL (4.0-10.5)
--- NOTE | 2016-09-08 17:07 | RADIOLOGY REPORT (SQ) ---
EXAM DESCRIPTION: CHEST PA/LAT COMPLETED DATE/TIME: 09/08/2016 4:55 pm REASON FOR STUDY: cp COMPARISON: 09/05/2016. EXAM PARAMETERS: NUMBER OF VIEWS: two views TECHNIQUE: Digital Frontal and Lateral radiographic views of the chest acquired. RADIATION DOSE: NA LIMITATIONS: none FINDINGS: LUNGS AND PLEURA: No opacities, masses or pneumothorax. No pleural effusion. MEDIASTINUM AND HILAR STRUCTURES: No masses or contour abnormalities. HEART AND VASCULAR STRUCTURES: Heart normal size. No evidence for failure. BONES: No acute findings. HARDWARE: None in the chest. OTHER: No other significant finding. IMPRESSION: NO SIGNIFICANT RADIOGRAPHIC FINDING IN THE CHEST. TECHNICAL DOCUMENTATION: JOB ID: [id number] [employer]- All Rights Reserved
[2016-09-08 17:22] LABS: ALANINE AMINOTRANSFERASE 27 U/L (21-72); ALBUMIN 4.8 g/dL (3.5-5.0); ALKALINE PHOSPHATASE 51 U/L (38-126); ANION GAP 16 (5-19); ASPARTATE AMINO TRANSFERASE 12 U/L (17-59); BILIRUBIN,DIRECT 0.3 mg/dL (0.0-0.4); BILIRUBIN,TOTAL 0.7 mg/dL (0.2-1.3); BLOOD UREA NITROGEN 9 mg/dL (7-20); CALCIUM 10.4 mg/dL (8.4-10.2); CARBON DIOXIDE 24 mmol/L (22-30); CHLORIDE 103 mmol/L (98-107); CREATINE KINASE 41 U/L (55-170); CREATININE RESULT 0.68 mg/dL (0.52-1.25); GLUCOSE 127 mg/dL (75-110); POTASSIUM 4.6 mmol/L (3.6-5.0); SODIUM 142.8 mmol/L (137-145); TOTAL PROTEIN 8.2 g/dL (6.3-8.2)
[2016-09-08 17:42] LABS: CREATINE KINASE MB < 0.22 ng/mL (<4.55); TROPONIN I < 0.012 ng/mL
--- NOTE | 2016-09-08 18:42 | ER Document Report ---
ED Cardiac - General Chief Complaint: Chest Pain Stated Complaint: CHEST PAIN Time Seen by Provider: 09/08/16 16:33 Mode of Arrival: Wheelchair Notes: The patient is a 41-year-old male, past medical history diabetes, chronic back pain, presents with several weeks of substernal chest pressure. He was instructed by his primary care physician to come the emergency room for further evaluation and treatment. He is taking Naprosyn 500 mg twice daily without much relief of his symptoms. He denies shortness of breath, leg swelling, cough , nausea, vomiting, upper back pain, fevers, numbness or tingling. TRAVEL OUTSIDE OF THE [place] IN LAST 30 DAYS: No COUNTRY TRAVELED TO/FROM: [facility] - Related Data Allergies/Adverse Reactions: No Known Allergies Allergy (Verified 09/08/16 16:14) Home Medications: Current Home Medications Atorvastatin Calcium 20 mg PO DAILY 09/08/16 [History] Gabapentin 900 mg PO TID 09/08/16 [History] Hum Insulin NPH/Reg Insulin Hm [Insulin 70-30 (NPH/Reg) 100 unit/mL] 42 unit SUBCUT BIDACBS 09/08/16 [History] Hydrocodone Bit/Acetaminophen [Hydrocodon-Acetaminophen 5-325] 1 each PO Q8H PRN 09/08/16 [History] Insulin Lispro [Humalog] 100 unit SQ TID 09/08/16 [History] Naproxen 500 mg PO Q8H 09/08/16 [History] Past Medical History - General Information source: Patient - Social History Smoking Status: Never Smoker Chew tobacco use (# tins/day): No Frequency of alcohol use: None Drug Abuse: None Family History: Other - Father: CAD; Grandfather: "rare blood disorder" - Past Medical History Cardiac Medical History: Reports: Hx Hypercholesterolemia, Hx Hypertension Neurological Medical History: Reports: Hx Migraine Endocrine Medical History: Reports: Hx Diabetes Mellitus Type 2 Renal/ Medical History: Denies: Hx Peritoneal Dialysis GI Medical History: Reports: Hx Gastroesophageal Reflux Disease Psychiatric Medical History: Denies: Hx Depression - Immunizations Immunizations up to date: Yes Hx Diphtheria, Pertussis, Tetanus Vaccination: No Hx Pneumococcal Vaccination: 10/05/13 Review of Systems - Review of Systems Notes: REVIEW OF SYSTEMS: CONSTITUTIONAL: -fevers, -chills EENT: -eye pain, -difficulty swallowing, -nasal congestion CARDIOVASCULAR: +chest pain, -syncope. RESPIRATORY: -cough, -SOB GASTROINTESTINAL: -abdominal pain, - nausea, -vomiting, -diarrhea GENITOURINARY: -dysuria, -hematuria MUSCULOSKELETAL: -back pain, -neck pain SKIN: -rash or skin lesions. HEMATOLOGIC: -easy bruising or bleeding. LYMPHATIC: -swollen, enlarged glands. NEUROLOGICAL: -altered mental status or loss of consciousness, -headache, - neurologic symptoms PSYCHIATRIC: -anxiety, -depression. ALL OTHER SYSTEMS REVIEWED AND NEGATIVE. Physical Exam - Vital signs Vitals: Temp Pulse Resp BP Pulse Ox 97.6 F 91 18 144/107 H 100 09/08/16 16:17 09/08/16 16:17 09/08/16 16:17 09/08/16 16:17 09/08/16 16:17 - Notes Notes: PHYSICAL EXAMINATION: GENERAL: Well-appearing, well-nourished and in no acute distress. HEAD: Atraumatic, normocephalic. EYES: Pupils equal round and reactive to light, extraocular movements intact, sclera anicteric, conjunctiva are normal. ENT: nares patent, oropharynx clear without exudates. Moist mucous membranes. NECK: Normal range of motion, supple without lymphadenopathy LUNGS: Breath sounds clear to auscultation bilaterally and equal. No wheezes rales or rhonchi. HEART: Regular rate and rhythm without murmurs ABDOMEN: Soft, nontender, normoactive bowel sounds. No guarding, no rebound. No masses appreciated. EXTREMITIES: Normal range of motion, no pitting or edema. No cyanosis. NEUROLOGICAL: Cranial nerves grossly intact. Normal speech, normal gait. Normal sensory and motor exams. PSYCH: Anxious mood, normal affect. SKIN: Warm, Dry, normal turgor, no rashes or lesions noted. Course - Re-evaluation Re-evalutation: Patient has a HEART score 2. Symptoms atypical for PE or aortic dissection. He is PERC negative. Instructed him that he must follow-up with his primary care physician for further evaluation and treatment this week. Also instructed him to have his blood pressure rechecked. Requesting something for his anxiety and will provide him with Vistaril with follow-up with primary care physician. - Vital Signs Vital signs: Temp Pulse Resp BP Pulse Ox 97.6 F 91 18 148/108 H 100 09/08/16 16:17 09/08/16 16:17 09/08/16 18:37 09/08/16 18:37 09/08/16 18:37 - Laboratory Result Diagrams: 09/08/16 16:48 09/08/16 16:48 Laboratory results interpreted by me: 09/08/16 09/08/16 16:48 16:48 RBC 5.68 H Glucose 127 H Calcium 10.4 H AST 12 L Creatine Kinase 41 L - Diagnostic Test Radiology reviewed: Image reviewed, Reports reviewed Radiology results interpreted by me: CXR: NAD - EKG Interpretation by Me EKG shows normal: Sinus rhythm, [place], Intervals, QRS Complexes, ST-T Waves Discharge - Discharge Clinical Impression: Chronic chest pain Condition: Stable Disposition: HOME, SELF-CARE Additional Instructions: CHEST PAIN OF UNCLEAR CAUSE: The exact cause of your chest pain isn't clear. Fortunately, there is no evidence of a dangerous medical condition. Further testing may be required to find the source of the pain. Most often, we find that this pain is coming from the chest wall -- the muscles or rib joints in the chest. But chest pain can come from the lung and lung lining, the esophagus, the heart valves or heart lining, and even the stomach or gallbladder. Rest. Eat lightly until the pain is gone. We may prescribe medicine for pain and inflammation. You should call the physician immediately if the pain radiates to the shoulder, jaw or arms; if you start to run a fever or develop a cough; or if you develop shortness of breath, or other new or alarming symptoms. NORMAL EXAM AND WORKUP: At this time, your examination and workup show no significant abnormality. No significant abnormal physical findings were noted. All laboratory, EKG, and imaging (x-ray, CT scans, ultrasound) studies that were ordered show no significant abnormality. Although your examination and all studies that were ordered showed no significant abnormal finding, there are no examinations and no studies that are 100% accurate. There is always the possibility that some abnormality could exist and not be detected with physical examination or within the limits and capabilities of laboratory and other studies. You should return or follow up as you were instructed on your visit today for further evaluation if your symptoms do not resolve. CHEST WALL PAIN: Your chest pain may be coming from the chest wall. This is often caused by straining the muscles or joints in the chest during physical activity, direct trauma, coughing, or vigorous vomiting. Persons with arthritis are especially prone to this type of pain, due to inflammation of the cartilage joints near the breast bone. Occasionally, no cause can be found. Rest from strenuous physical activity. This kind of chest pain is usually made worse by movement of the chest. Depending on the symptoms, we may prescribe medicine for pain, muscle relaxation, and antiinflammatory effects. If the pain is new, and seems to be due to muscle strain, cold packs can help. Otherwise, apply gentle warmth to the painful area for 15 minutes every hour or two. You should call contact the doctor immediately if things change. Further evaluation is needed if you develop a fever or cough, if the nature of the pain changes, or if you become short of breath. ANGINA EPISODE: Your physician has diagnosed the pain you experienced as an episode of angina. Angina occurs when a portion of the heart muscle temporarily lacks oxygen. It does not cause any permanent heart damage, but serves as a warning. Hospitalization is not necessary now. Evaluation of your cardiac condition , and medical therapy for angina will be necessary. It's important you be sure to keep all appointments and take medication exactly as prescribed. Angina is usually treated with a type of "nitrate" medication. This is available as ointment, pills, or sublingual (under the tongue) tablets. Depending on your clinical situation, other medications may be added to help control angina. These may include beta blockers or calcium blockers. If episodes of angina are occurring with increased frequency, or if chest pain lasts longer than 15 minutes or does not respond to nitroglycerin, you must seek emergency medical care immediately. ACID REFLUX DISEASE (GERD): Gastro-Esophageal Reflux Disease (GERD) is caused by stomach acid refluxing back up into the esophagus. The valve at the end of the esophagus may be weak. This is common in persons with a hiatal hernia. GERD symptoms can include indigestion, chest pain, heartburn, or food "sticking." Certain foods, alcohol, and aspirin can make GERD worse. Treatment depends on the severity. Usually, antacids or acid-suppressing medicines are used. When the esophagus is acutely inflamed, the physician will often prescribe membrane-protective drugs such as Carafate. Some patients benefit from medication such as Reglan that tightens the valve at the top of the stomach. Avoid those foods that bring on your symptoms. For many people, these foods are coffee, chocolate, onions, garlic, and carbonated drinks. Don't use alcohol, aspirin, caffeine, or tobacco. Don't eat late at night -- within 4 hours of bedtime. Don't over-eat. If necessary, elevate the head of your bed about 4 inches so that stomach acid will not roll up into your esophagus. Call the doctor if you develop severe chest pain, inability to swallow fluids, fever, or worsening symptoms. FOLLOW-UP CARE: If you have been referred to a physician for follow-up care, call the physician s office for an appointment as you were instructed or within the next two days. If you experience worsening or a significant change in your symptoms, notify the physician immediately or return to the Emergency Department at any time for re-evaluation. Prescriptions: Hydroxyzine Pamoate [Vistaril 25 mg Capsule] 25 mg PO DAILY #8 capsule Forms: Return to Work Referrals: LIZZY KESSLER DO [Primary Care Provider] - Follow up as needed
[2016-09-08 18:45] VITALS: BP 148/108
--- NOTE | 2016-09-09 12:51 | EKG REPORT ---
SEVERITY:- NORMAL ECG - SINUS RHYTHM : Confirmed by: Harriet Lyons MD 09-Sep-2016 12:50:30
--- NOTE | 2016-09-09 12:51 | EKG REPORT ---
SEVERITY:- ABNORMAL ECG - ATRIAL FIBRILLATION : Confirmed by: Harriet Lyons MD 09-Sep-2016 12:50:15
== END 2016-09-08 18:53 | disposition home or self-care (01) ==
LOC: ER 16:03
DX: R07.89 Other chest pain (principal); G89.29 Other chronic pain; I10 Essential (primary) hypertension; E11.9 Type 2 diabetes mellitus without complications; F41.9 Anxiety disorder, unspecified; Z82.49 Family history of ischemic heart disease and other diseases of the circulatory system; Z83.2 Family history of diseases of the blood and blood-forming organs and certain disorders involving the immune mechanism
CPT/HCPCS: 36415; 71020; 80053; 82550; 82553; 84484; 85025; 93005; 93010; 99285

== ENCOUNTER 2016-09-09 20:06 | Emergency (ER) | payer MEDICAID ==
[2016-09-09] MEDS ORDERED: ASPIRIN 81 MG TABLET, CHEWABLE PO ONE (20:35)
--- NOTE | 2016-09-09 20:37 | ER Document Report ---
ED Cardiac - General Mode of Arrival: Medic Information source: Patient TRAVEL OUTSIDE OF THE [place] IN LAST 30 DAYS: No COUNTRY TRAVELED TO/FROM: [facility] Patient complains to provider of: Chest pain Associated symptoms: Other - See above <LEEANNE HERNANDEZ - Last Filed: 09/09/16 20:46> <ALVA CHURCHILL - Last Filed: 09/09/16 23:31> - General Chief Complaint: Chest Pain > 30 Stated Complaint: CHEST PAIN Time Seen by Provider: 09/09/16 20:12 Notes: Patient is a 41 year old male, with a past medical history including diabetes, who presents to the emergency department complaining of chest pain. Patient has been seen here twice in the last week for the same complaint and has not had any relief. Patient reports the pain is across his lower chest and in the left side of his chest. Patient believes that the pain is from anxiety as he has been under a lot of stress recently stating that he thinks he may loose his home due to financial issues. Patient states that the pain is exacerbated by exertion and has been intermittent for the past 2-3 weeks. Patient reports the pain has gotten so bad that "told his mom he would shoot himself". Patient also complains of nausea onset last night. Patient reports the prescription he received yesterday for Vistaril has not helped. Patient was also seen by Dr. Hoyt who is worried about a blood clot. Patient suffers from neuropathy that keeps him from working and states he recently found out it is due to a disc problem in his sacral area. (LEEANNE HERNANDEZ) - Related Data Allergies/Adverse Reactions: No Known Allergies Allergy (Verified 09/08/16 16:14) Past Medical History - General Information source: Patient - Social History Smoking Status: Never Smoker Frequency of alcohol use: None Drug Abuse: None Lives with: Family Family History: Reviewed & Not Pertinent, Other - Father: CAD; Grandfather: "rare blood disorder" - Past Medical History Cardiac Medical History: Reports: Hx Hypercholesterolemia, Hx Hypertension Neurological Medical History: Reports: Hx Migraine Endocrine Medical History: Reports: Hx Diabetes Mellitus Type 2 GI Medical History: Reports: Hx Gastroesophageal Reflux Disease - Immunizations Immunizations up to date: Yes Hx Diphtheria, Pertussis, Tetanus Vaccination: No Hx Pneumococcal Vaccination: 10/05/13 <LEEANNE HERNANDEZ - Last Filed: 09/09/16 20:46> Review of Systems - Review of Systems Constitutional: No symptoms reported EENT: No symptoms reported Cardiovascular: See HPI, Chest pain Respiratory: No symptoms reported Gastrointestinal: See HPI, Nausea Genitourinary: No symptoms reported Male Genitourinary: No symptoms reported Musculoskeletal: No symptoms reported Skin: No symptoms reported Hematologic/Lymphatic: No symptoms reported Neurological/Psychological: No symptoms reported -: Yes All other systems reviewed and negative <HERNANDEZLEEANNE - Last Filed: 09/09/16 20:46> Physical Exam <HERNANDEZLEEANNE - Last Filed: 09/09/16 20:46> <ALVA CHURCHILL - Last Filed: 09/09/16 23:31> - Vital signs Vitals: Resp BP Pulse Ox 14 141/102 H 100 09/09/16 20:12 09/09/16 20:12 09/09/16 20:12 - Notes Notes: GENERAL: Alert. No acute distress. HEAD: Normocephalic, atraumatic. EYES: Pupils equal, round, and reactive to light. Extraocular movements intact. ENT: Oral mucosa moist, tongue midline. NECK: Full range of motion. Supple. Trachea midline. LUNGS: Clear to auscultation bilaterally, no wheezes, rales, or rhonchi. No respiratory distress. HEART: Regular rate and rhythm. No murmurs, gallops, or rubs. Tenderness to palpation across rib cage laterally over axillary line. ABDOMEN: Soft, non-tender. Non-distended. Bowel sounds present in all 4 quadrants. EXTREMITIES: Moves all 4 extremities spontaneously. No edema. No cyanosis. NEUROLOGICAL: Alert and oriented x3. Normal speech. PSYCH: Normal affect. Appears anxious. SKIN: Warm, dry, normal turgor. No rashes or lesions noted. (DAVIDLEEANNE) Course - Laboratory Result Diagrams: 09/09/16 20:15 09/09/16 20:15 <LEEANNE HERNANDEZ - Last Filed: 09/09/16 20:46> - Laboratory Result Diagrams: 09/09/16 20:15 09/09/16 20:15 <ALVA CHURCHILL - Last Filed: 09/09/16 23:31> - Re-evaluation Re-evalutation: 09/09/16 22:47 CBC unremarkable, coags normal, CMP grossly unremarkable, cardiac enzymes once again negative, lipase normal, CT angiogram of the chest does not show any pulmonary embolism or dissection. I do not find any reversible medical cause for his chest pain. There is no evidence of pericarditis on his EKG, patient has imaging that does not show any pulmonary embolism or dissection, evidence of pericardial effusion. No evidence of pneumonia or pneumothorax. At present time I do not find a specific cause for his chest pain. It could well be due to anxiety, I recommend the patient follow-up with his primary care physician as an outpatient, I will trial a single dose of Ativan here. He will not be given a prescription to go home with as this is not a viable long-term treatment for anxiety. I recommend that he follow-up with his primary care physician to investigate better long-term anxiety medications and I have also started him on Zantac in case this is GERD. Discharged home. 09/09/16 22:49 Patient also noted while he was here that he has been taking narcotics for the past 3-4 days and has not had a bowel movement in several days, states that he is concerned about constipation and usually takes magnesium citrate for this. Patient was given magnesium citrate here 09/09/16 22:51 (ALVA CHURCHILL) - Vital Signs Vital signs: Temp Pulse Resp BP Pulse Ox 98.4 F 14 147/102 H 100 09/09/16 20:24 09/09/16 23:00 09/09/16 21:01 09/09/16 22:17 - Laboratory Laboratory results interpreted by me: 09/09/16 20:15 Glucose 135 H AST 11 L ALT 16 L Creatine Kinase 38 L - EKG Interpretation by Me Additional EKG results interpreted by me: 09/09/16 22:49 EKG shows sinus rhythm at a rate of 74, normal axis, normal intervals, no ST segment elevations or depressions, no T-wave inversions per my interpretation. ( ALVA CHURCHILL) Discharge <LEEANNE HERNANDEZ - Last Filed: 09/09/16 20:46> <ALVA CHURCHILL - Last Filed: 09/09/16 23:31> - Discharge Clinical Impression: Chest pain not due to acute coronary syndrome Condition: Stable Disposition: HOME, SELF-CARE Additional Instructions: I am not certain what is causing your chest pain. Today we have had no evidence of heart attack, blood clot to the lungs, pneumonia or any other problem with your blood vessels or lungs. Please follow-up with your primary care physician. This may be anxiety as you suspect ot it could also be reflux disease. I tried you on a single dose of Ativan this evening. If this helps to relieve your pain please follow-up with your primary care physician to investigate the best treatments for anxiety in your particular case. Ativan is not a good long-term treatment for anxiety. This may also represent reflux disease, I would like you to start taking Zantac 75 mg twice a day or its generic equivalent. This is available over-the- counter. You do not need a prescription. Forms: Return to Work Referrals: LIZZY HOYT, [Primary Care Provider] - Follow up in 3-5 days Scribe Attestation: 09/09/16 23:31 I personally performed the services described in the documentation, reviewed and edited the documentation which was dictated to the scribe in my presence, and it accurately records my words and actions. (ALVA CHURCHILL) Scribe Documentation - Scribe Written by Ev:: ev Vincent, 09/09/[id number] acting as scribe for :: Juan Carlos <LEEANNE HERNANDEZ - Last Filed: 09/09/16 20:46>
[2016-09-09 20:51] LABS: PROTHROMBIN TIME 12.6 SEC (11.4-15.4)
[2016-09-09 20:54] LABS: ABSOLUTE EOSINOPHILS # (AUTO) 0.3 10^3/uL (0.0-0.6); ABSOLUTE LYMPHOCYTES (AUTO) 3.3 10^3/uL (0.5-4.7); ABSOLUTE MONOCYTES (AUTO) 0.7 10^3/uL (0.1-1.4); ABSOLUTE NEUT (AUTO) 4.4 10^3/uL (1.7-8.2); BASOPHILS % (AUTO) 0.4 % (0-2); EOSINOPHILS % (AUTO) 3.8 % (0-6); HEMATOCRIT 45.7 % (37.9-51.0); HEMOGLOBIN 15.4 g/dL (13.5-17.0); HGB HCT DIFFERENCE 0.5; LYMPHOCYTES % (AUTO) 37.3 % (13-45); MEAN CORPUSCULAR HEMOGLOBIN 29.4 pg (27.0-33.4); MEAN CORPUSCULAR HGB CONC 33.7 g/dL (32.0-36.0); MEAN CORPUSCULAR VOLUME 87 fl (80-97); MONOCYTES % (AUTO) 7.8 % (3-13); RED BLOOD COUNT 5.24 10^6/uL (4.35-5.55); RED CELL DISTRIBUTION WIDTH 12.9 % (11.5-14.0); SEGMENTED NEUTROPHILS % (AUTO) 50.7 % (42-78); WHITE BLOOD COUNT 8.8 10^3/uL (4.0-10.5)
[2016-09-09 20:56] LABS: ALANINE AMINOTRANSFERASE 16 U/L (21-72); ALBUMIN 4.3 g/dL (3.5-5.0); ALKALINE PHOSPHATASE 46 U/L (38-126); ANION GAP 13 (5-19); ASPARTATE AMINO TRANSFERASE 11 U/L (17-59); BILIRUBIN,DIRECT 0.3 mg/dL (0.0-0.4); BILIRUBIN,TOTAL 0.8 mg/dL (0.2-1.3); BLOOD UREA NITROGEN 9 mg/dL (7-20); CARBON DIOXIDE 24 mmol/L (22-30); CHLORIDE 102 mmol/L (98-107); CREATINE KINASE 38 U/L (55-170); CREATININE RESULT 0.74 mg/dL (0.52-1.25); GLUCOSE 135 mg/dL (75-110); POTASSIUM 4.4 mmol/L (3.6-5.0); TOTAL PROTEIN 7.4 g/dL (6.3-8.2)
[2016-09-09 21:08] LABS: CREATINE KINASE MB < 0.22 ng/mL (<4.55); TROPONIN I < 0.012 ng/mL
[2016-09-09] MEDS ORDERED: MAGNESIUM CITRATE 296 ML BOTTLE PO ONE (21:40)
--- NOTE | 2016-09-09 22:30 | RADIOLOGY REPORT (SQ) ---
EXAM DESCRIPTION: CTA CHEST COMPLETED DATE/TIME: 09/09/2016 10:06 pm REASON FOR STUDY: chest pain, r/o PE COMPARISON: Chest x-ray dated 09/08/2016 TECHNIQUE: CT scan of the chest performed using helical scanning technique with dynamic intravenous contrast injection. Images reviewed with lung, soft tissue and bone windows. Reconstructed coronal and sagittal MPR images reviewed. Additional 3 dimensional post-processing performed to develop Maximal Intensity Projection images (MT P). All images stored on PACS. All CT scanners at this facility use dose modulation, iterative reconstruction, and/or weight based d osing when appropriate to reduce radiation dose to as low as reasonably achievable (ALARA). [facility]: Dose Right [facility]: CareDose [facility]: Dose Right [facility]: Teradose 4D [facility]: [employer] CONTRAST TYPE AND DOSE: contrast/concentration: Isovue 370.00 mg/ml; Total Contrast Delivered: 75.0 ml; Total Saline Delivered: 75.0 ml RENAL FUNCTION: Creatinine 0.74 RADIATION DOSE: Up-to-date CT equipment and radiation dose reduction techniques were employed. CTDIv ol: 21.8 - 26.4 mGy. DLP: 825 mGy-cm. . LIMITATIONS: None. FINDINGS: LUNGS AND PLEURA: No masses, infiltrates, pneumothorax. No pleural effusions, calcificati ons. AORTA AND GREAT VESSELS: No aneurysm or dissection. HEART: No pericardial effusion. PULMONARY ARTERIES: No emboli visualized in the main pulmonary arteries or the segmental branches. HILAR AND MEDIASTINAL STRUCTURES: No identified masses or abnormal nodes. HARDWARE: None in the chest. UPPER ABDOMEN: No significant findings. Limited exam. THYROID AND OTHER SOFT TISSUES: No masses. No adenopathy. BONES: No acute or significant finding. 3D MIPS: Confirm above findings. OTHER: No other significant finding. IMPRESSION: NORMAL CTA OF THE CHEST. NO PULMONARY EMBOLI. TECHNICAL DOCUMENTATION: JOB ID: [id number] Quality ID # [id number]: Final reports with documentation of one or more dose reduction techniques (e.g., Au tomated exposure control, adjustment of the mA and/or kV according to patient size, use of iterative reconstruction technique) 2010 [employer]- All Rights Reserved
[2016-09-09] MEDS ORDERED: LORAZEPAM 0.5 MG TABLET PO ONE (22:49)
[2016-09-09 23:53] VITALS: BP 145/104
--- NOTE | 2016-09-10 16:21 | EKG REPORT ---
SEVERITY:- NORMAL ECG - SINUS RHYTHM : Confirmed by: Harriet Lyons MD 10-Sep-2016 16:20:31
== END 2016-09-09 23:10 | disposition home or self-care (01) ==
LOC: ER 20:06
DX: R07.9 Chest pain, unspecified (principal); E11.9 Type 2 diabetes mellitus without complications; I24.9 Acute ischemic heart disease, unspecified
CPT/HCPCS: 93005; 99285; 36415; 82553; 82550; 83690; 85025; 85610; 80053; 84484; 71275; 93010; J3490

== ENCOUNTER 2017-06-05 09:11 | Emergency (ER) | payer MEDICAID ==
[2017-06-05 09:19] VITALS: BP 147/99
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
== END 2017-06-05 09:44 | disposition home or self-care (01) ==
LOC: ER 09:11
DX: R11.2 Nausea with vomiting, unspecified (principal); R05 Cough; E78.00 Pure hypercholesterolemia, unspecified; I10 Essential (primary) hypertension; E11.9 Type 2 diabetes mellitus without complications
CPT/HCPCS: 99283

== ENCOUNTER 2017-06-07 07:27 | Inpatient (IN) | payer MEDICAID ==
[2017-06-07 08:24] LABS: ABSOLUTE BASOPHILS # (AUTO) 0.1 10^3/uL (0.0-0.2); ABSOLUTE EOSINOPHILS # (AUTO) 0.2 10^3/uL (0.0-0.6); ABSOLUTE LYMPHOCYTES (AUTO) 2.4 10^3/uL (0.5-4.7); ABSOLUTE MONOCYTES (AUTO) 0.5 10^3/uL (0.1-1.4); BASOPHILS % (AUTO) 0.9 % (0-2); HEMATOCRIT 42.8 % (37.9-51.0); HEMOGLOBIN 14.5 g/dL (13.5-17.0); MEAN CORPUSCULAR HEMOGLOBIN 29.1 pg (27.0-33.4); MEAN CORPUSCULAR HGB CONC 33.8 g/dL (32.0-36.0); MEAN CORPUSCULAR VOLUME 86 fl (80-97); MONOCYTES % (AUTO) 7.6 % (3-13); PLATELET COUNT 330 10^3/uL (150-450); RED BLOOD COUNT 4.96 10^6/uL (4.35-5.55); RED CELL DISTRIBUTION WIDTH 14.2 % (11.5-14.0); SEGMENTED NEUTROPHILS % (AUTO) 55.5 % (42-78); TOTAL CELLS COUNTED % (AUTO) 100 %; WHITE BLOOD COUNT 7.1 10^3/uL (4.0-10.5)
[2017-06-07 08:39] LABS: ALANINE AMINOTRANSFERASE 38 U/L (21-72); ALBUMIN 3.8 g/dL (3.5-5.0); ALKALINE PHOSPHATASE 63 U/L (38-126); ANION GAP 11 (5-19); ASPARTATE AMINO TRANSFERASE 21 U/L (17-59); BILIRUBIN,DIRECT 0.2 mg/dL (0.0-0.4); BILIRUBIN,TOTAL 0.2 mg/dL (0.2-1.3); BLOOD UREA NITROGEN 14 mg/dL (7-20); CALCIUM 9.4 mg/dL (8.4-10.2); CARBON DIOXIDE 28 mmol/L (22-30); CHLORIDE 105 mmol/L (98-107); CREATINE KINASE 106 U/L (55-170); GLUCOSE 273 mg/dL (75-110); POTASSIUM 4.4 mmol/L (3.6-5.0); SODIUM 143.6 mmol/L (137-145); TOTAL PROTEIN 6.8 g/dL (6.3-8.2)
[2017-06-07 08:51] LABS: CREATINE KINASE MB 0.73 ng/mL (<4.55)
[2017-06-07 08:55] LABS: TROPONIN I < 0.012 ng/mL
[2017-06-07 09:10] LABS: APPEARANCE,URINE CLEAR; BILIRUBIN,URINE NEGATIVE (NEGATIVE); COLOR,URINE YELLOW; GLUCOSE, URINE >=500 mg/dL (NEGATIVE); KETONES,URINE TRACE mg/dL (NEGATIVE); LEUKOCYTE ESTERASE,URINE NEGATIVE (NEGATIVE); NITRITE,URINE NEGATIVE (NEGATIVE); PROTEIN,URINE NEGATIVE (NEGATIVE); URINE SPECIFIC GRAVITY 1.022; UROBILINOGEN,URINE NEGATIVE mg/dL (<2.0)
--- NOTE | 2017-06-07 09:36 | EKG REPORT ---
SEVERITY:- NORMAL ECG - SINUS RHYTHM : Confirmed by: Lurdes Hightower 07-Jun-2017 09:35:38
[2017-06-07 09:46] LABS: INTERNATIONAL RATION (INR) 0.86; PROTHROMBIN TIME 12.2 SEC (11.4-15.4)
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
[2017-06-07] MEDS ORDERED: NORMAL SALINE 1000 ML 1,000 ML IV ONE (09:52)
[2017-06-07] MEDS ORDERED: ONDANSETRON HCL INJ/PF 4 MG/2 ML SDV IV ONE (09:53)
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
[2017-06-07] MEDS ORDERED: ONDANSETRON 4 MG TAB.RAPDIS PO PRN (11:13)
[2017-06-07] MEDS ORDERED: ACETAMINOPHEN 325 MG TABLET PO PRN (11:13)
[2017-06-07] MEDS ORDERED: LEVALBUTEROL HCL NEB 1.25 MG/3 ML AMPUL NEB PRN (11:13)
[2017-06-07] MEDS ORDERED: DEXTROSE 50%-WATER 25 GM/50 ML DISP.SYRIN IV PRN ×2 (11:17)
[2017-06-07] MEDS ORDERED: DEXTROSE 40% GEL 15 GM TUBE PO PRN ×2 (11:17)
[2017-06-07] MEDS ORDERED: GLUCAGON,HUMAN RECOMB 1 MG INJ IM PRN (11:17)
[2017-06-07 11:35] LABS: URINE AMPHETAMINES SCREEN NEGATIVE; URINE BARBITURATES SCREEN NEGATIVE; URINE BENZODIAZEPINES SCREEN NEGATIVE; URINE COCAINE SCREEN NEGATIVE; URINE MARIJUANA (THC) SCREEN NEGATIVE; URINE METHADONE SCREEN NEGATIVE; URINE PHENCYCLIDINE SCREEN NEGATIVE
[2017-06-07 12:08] LABS: CREATINE KINASE MB 0.58 ng/mL (<4.55)
[2017-06-07 12:11] LABS: TROPONIN I < 0.012 ng/mL
--- NOTE | 2017-06-07 13:21 | PDOC H&P ---
History of Present Illness Admission Date/PCP: 06/07/17 11:16 LIZZY KESSLER DO History of Present Illness: FRANKIE STANTON is a 42 year old male with a Insulin-dependent diabetes Hypertension Diabetic neuropathy Chronic back pain due to degenerative disc disease on chronic opiates Depression Insomnia Outpatient medications are: Atorvastatin Insulin 70 3042 units twice a day Insulin sliding scale with meals Lisinopril 10 mg daily Metformin 1000 mg twice a day Lyrica 150 twice a day Percocet 10/325 every 6 hours as needed Amlodipine 2.5 mg daily Amitriptyline 25 mg at bedtime He presented to the emergency room today after 2 syncopal episodes. He was in his usual state of health when he decided to ride his bicycle to work. He had not checked his blood sugars in the morning nor taken any of his medications. His blood sugars are usually run high. After riding his bike for approximately 10 minutes he started seeing stars/ thoughts and the next thing he remembers is waking up on the ground. He felt weak. He walked back to his house and as a he was entering he had another syncopal episode. There was no reported seizure-like movements. No incontinence no tongue biting. He denies any chest pain or palpitations at any time. He reports that his had noticed him shaking during sleep a couple of times approximately a year ago. This was never followed up. He is not aware of any history of seizures. His father had a quadruple bypass at the age of 55. The patient has never had a stress test. He denies any chest pain palpitations or shortness of breath at present. Last week he had a self-limited episode of nausea vomiting and diarrhea. That has resolved. No recent change in medications. Orthostatic blood pressures were checked in the emergency room and these were negative. Past Medical History Cardiac Medical History: Reports: Hyperlipidema, Hypertension Neurological Medical History: Reports: Migraine Endocrine Medical History: Reports: Diabetes Mellitus Type 2 GI Medical History: Reports: Gastroesophageal Reflux Disease Psychiatric Medical History: Denies: Depression Past Surgical History Past Surgical History: Reports: Other - Ears surgery 7 lymph node removed from left arm Social History Information Source: Patient Smoking Status: Never Smoker Frequency of Alcohol Use: None Hx Recreational Drug Use: No Hx Prescription Drug Abuse: No Family History Family History: Arthritis, CAD, COPD, DM, Hyperlipidemia, Hypertension, Thyroid Disfunction, Other - Father: CAD; Grandfather: "rare blood disorder". denies: CVA, Malignancy Parental Family History Reviewed: Yes Children Family History Reviewed: Yes Sibling(s) Family History Reviewed.: Yes Medication/Allergy Home Medications: Amitriptyline HCl [Elavil 25 mg Tablet] 25 mg PO QHS 06/07/17 Amlodipine Besylate [Norvasc 2.5 mg Tablet] 2.5 mg PO DAILY 06/07/17 Atorvastatin Calcium [Lipitor 40 mg Tablet] 40 mg PO DAILY 06/07/17 Ergocalciferol (Vitamin D2) [Vitamin D2] 50,000 unit PO WE@1000 06/07/17 Hydrocodone/Acetaminophen [Hydrocodon-Acetaminophn 10-325] 1 tab PO Q6HP PRN Insulin Lispro [Humalog Insulin 100 Unit/1 ml 3 ml Vial] 42 unit SUBCUT BIDACBS 06/07/17 Lisinopril [Prinivil 10 mg Tablet] 10 mg PO DAILY 06/07/17 Metformin HCl [Glucophage] 1,000 mg PO BID 06/07/17 NPH, Human Insulin Isophane [Humulin N (NPH) Insulin 100 Unit/1 ml 3 ml] 1 unit SUBCUT .SLIDING SCALE 06/07/17 Pregabalin [Lyrica] 150 mg PO Q12 06/07/17 Testosterone [Androgel] 1 applic TD DAILY 06/07/17 Allergies/Adverse Reactions: No Known Allergies Allergy (Verified 06/07/17 07:36) Review of Systems Constitutional: ABSENT: fever(s), headache(s) Eyes: PRESENT: visual disturbances Ears: ABSENT: hearing changes Nose, Mouth, and Throat: ABSENT: sore throat Cardiovascular: ABSENT: chest pain, edema, palpitations Respiratory: ABSENT: cough, dyspnea Gastrointestinal: ABSENT: abdominal pain, diarrhea, vomiting Genitourinary: ABSENT: dysuria Musculoskeletal: ABSENT: joint swelling Integumentary: ABSENT: pruritus Neurological: PRESENT: syncope. ABSENT: focal weakness Psychiatric: ABSENT: hallucinations Endocrine: ABSENT: heat intolerance Hematologic/Lymphatic: ABSENT: easy bruising Physical Exam Vital Signs: Temp Pulse Resp BP Pulse Ox 97.7 F 82 20 121/97 H 99 06/07/17 12:48 06/07/17 08:25 06/07/17 12:01 06/07/17 12:01 06/07/17 12:01 General appearance: PRESENT: no acute distress, obese Head exam: PRESENT: normocephalic Eye exam: PRESENT: EOMI, PERRLA. ABSENT: scleral icterus Ear exam: PRESENT: normal external ear exam Mouth exam: PRESENT: moist Neck exam: ABSENT: carotid bruit, tracheal deviation Respiratory exam: PRESENT: clear to auscultation easton, symmetrical, unlabored Cardiovascular exam: PRESENT: RRR. ABSENT: systolic murmur GI/Abdominal exam: PRESENT: normal bowel sounds, soft. ABSENT: tenderness Rectal exam: PRESENT: deferred Extremities exam: ABSENT: calf tenderness, pedal edema Neurological exam: PRESENT: alert, awake, oriented to person, oriented to place , oriented to time Psychiatric exam: PRESENT: appropriate affect Skin exam: ABSENT: petechiae Results Laboratory Results: 06/07/17 11:25 CK-MB (CK-2) 0.58 Troponin I < 0.012 Impressions: Cervical Spine CT 06/07/17 09:09 IMPRESSION: NO ACUTE OR SIGNIFICANT FINDINGS IN THE CERVICAL SPINE. Head CT 06/07/17 09:09 IMPRESSION: NORMAL BRAIN CT WITHOUT CONTRAST. EVIDENCE OF ACUTE STROKE: NO. Assessment & Plan - Diagnosis (1) Syncope and collapse Is this a current diagnosis for this admission?: Yes Plan: Orthostatic BP normal. No evidence of dehydration on labs or exam. We will get serial cardiac enzymes. EKG and initial set of cardiac enzymes negative. Check echocardiogram and stress test. Monitor on telemetry. (2) Hypertension Qualifiers: Hypertension type: essential hypertension Qualified Code(s): I10 - Essential (primary) hypertension Is this a current diagnosis for this admission?: Yes Plan: Continue lisinopril and amlodipine. (3) Insulin dependent diabetes mellitus Is this a current diagnosis for this admission?: Yes Plan: Monitor blood glucose. Insulin 70/30 twice a day. Sliding scale Diabetic diet. (4) Hyperlipidemia Qualifiers: Hyperlipidemia type: other hyperlipidemia Qualified Code(s): E78.4 - Other hyperlipidemia Is this a current diagnosis for this admission?: Yes Plan: Continue Atorvastatin (5) Diabetic neuropathy Qualifiers: Diabetes mellitus type: type 2 Is this a current diagnosis for this admission?: Yes Plan: Continue Lyrica (6) Opiate dependence, continuous Is this a current diagnosis for this admission?: Yes Plan: Percocet as needed (7) Chronic back pain Is this a current diagnosis for this admission?: Yes Plan: Percocet as needed (8) Depression Is this a current diagnosis for this admission?: Yes Plan: Continue amitriptyline (9) Insomnia Is this a current diagnosis for this admission?: Yes Plan: As above. - Time Time Spent: Greater than 70 Minutes - Inpatient Certification Based on my medical assessment, after consideration of the patient's comorbidities, presenting symptoms, or acuity I expect that the services needed warrant INPATIENT care.: No
[2017-06-07] MEDS ORDERED: (PENDING PHARMACY ID) (Oxycodone Hcl/Acetaminophen [Percocet 10-325 Mg Tablet] 1 EACH) PO PRN (13:27)
[2017-06-07] MEDS ORDERED: TESTOSTERONE TD SCH (13:30)
[2017-06-07] MEDS ORDERED: OXYCODONE HCL IR 5 MG TABLET PO PRN (15:07)
[2017-06-07] MEDS: HUM INSULIN NPH/REG INSULIN HM 100 UNIT/1 ML 3 ML SUBCUT SCH (15:55)
[2017-06-07] MEDS ORDERED: LISINOPRIL 10 MG TABLET PO ONE (16:00)
[2017-06-07] MEDS ORDERED: PREGABALIN 75 MG CAPSULE PO ONE (16:00)
[2017-06-07] MEDS ORDERED: ATORVASTATIN CALCIUM 40 MG TABLET PO ONE (16:00)
[2017-06-07] MEDS ORDERED: AMLODIPINE BESYLATE 2.5 MG TABLET PO ONE (16:00)
[2017-06-07] MEDS: ASPIRIN 81 MG TABLET, ENT COATED PO SCH (17:07)
[2017-06-07 17:49] LABS: CREATINE KINASE MB 0.49 ng/mL (<4.55)
[2017-06-07 17:50] LABS: TROPONIN I < 0.012 ng/mL
[2017-06-07] MEDS: AMITRIPTYLINE HCL 25 MG TABLET PO SCH (20:43)
[2017-06-07] MEDS: PREGABALIN 75 MG CAPSULE PO SCH (20:43)
[2017-06-08 07:13] LABS: HEMATOCRIT 41.7 % (37.9-51.0); MEAN CORPUSCULAR HEMOGLOBIN 28.8 pg (27.0-33.4); MEAN CORPUSCULAR HGB CONC 33.6 g/dL (32.0-36.0); MEAN CORPUSCULAR VOLUME 86 fl (80-97); PLATELET COUNT 313 10^3/uL (150-450); RED BLOOD COUNT 4.86 10^6/uL (4.35-5.55); RED CELL DISTRIBUTION WIDTH 13.9 % (11.5-14.0)
[2017-06-08 07:50] LABS: CHOLESTEROL 151.35 mg/dL (0-200); TRIGLYCERIDES 187 mg/dL (<150)
[2017-06-08 07:53] LABS: ANION GAP 13 (5-19); BLOOD UREA NITROGEN 12 mg/dL (7-20); CARBON DIOXIDE 25 mmol/L (22-30); CHLORIDE 106 mmol/L (98-107); GLUCOSE 161 mg/dL (75-110); PHOSPHORUS 4.2 mg/dL (2.5-4.5); POTASSIUM 3.9 mmol/L (3.6-5.0); SODIUM 144.4 mmol/L (137-145)
[2017-06-08 08:01] LABS: DIRECT LDL 93 mg/dL (<100)
[2017-06-08 08:05] LABS: VLDL CHOLESTEROL 37.4 mg/dL (10-31)
[2017-06-08] MEDS: HUM INSULIN NPH/REG INSULIN HM 100 UNIT/1 ML 3 ML SUBCUT SCH ×2 (11:02→18:07)
[2017-06-08] MEDS: AMLODIPINE BESYLATE 2.5 MG TABLET PO SCH (11:02)
[2017-06-08] MEDS: PREGABALIN 75 MG CAPSULE PO SCH ×2 (11:02→21:07)
[2017-06-08] MEDS: ATORVASTATIN CALCIUM 40 MG TABLET PO SCH (11:02)
[2017-06-08] MEDS: LISINOPRIL 10 MG TABLET PO SCH (11:02)
--- NOTE | 2017-06-08 12:35 | DRAGON STRESS TEST REPORT ---
INTRAVENOUS LEXISCAN CARDIOLITE STRESS TEST USING SINGLE PHOTON EMMISION COMPUTERIZED TOMOGRAPHIC. DATE OF PROCEDURE: June 08, 2017, INDICATION : Syncope CARDIAC RISK FACTORS: Diabetes, hypertension, dyslipidemia RESTING EKG: Sinus rhythm without any baseline ST-T wave changes STRESS EKG: No significant ST segment changes noted with LexiScan bolus REASON FOR TERMINATION: Protocol. PROCEDURE REPORT: Baseline heart rate 75 beats per minute with blood pressure of 106/66. Patient had no significant complaints. Patient was bolused with Lexiscan 0.4 mg intravenously followed by saline bolus. Heart rate at 2 minutes post bolus 84 with a blood pressure of 133/54. 3 minutes post bolus heart rate 86 with blood pressure of 124/63. No significant EKG changes were noted. Patient had no significant complaints during the procedure or postprocedure. Patient injected with Aminophyllin 75 mg at 3 minutes or later after Lexiscan bolus. CONCLUSIONS: Normal EKG and hemodynamic response to IV LexiScan. NUCLEAR DATA: At rest the patient was given 15.37 millicuries of technetium 99 sestamibi injected intravenously. As per protocol rest gated SPECT images were obtained. On day of stress test, the patient was given intravenous LexiScan at a dose of 0.4 mg in 5 mL intravenously, followed by flush with normal saline. Subsequently the stress dose of 46.8 millicuries of technetium 99 sestamibi was injected intravenously. As per protocol stress gated images were obtained. NUCLEAR INTERPRETATION: Both raw and processed data were used for interpretation. Visual, qualitative, computer-generated quantitative data was used. There was good myocardial uptake of technetium compound. Motion artifact and soft tissue attenuations were noted. Increased visceral uptake was noted. No definitive areas of transient perfusion defect noted, No definitive areas of fixed perfusion defect or scars noted. EKG gated imaging showed LV EF at 56 %, rest and stress gated EF similar visually. T. I D. ratio was 1.14. Lung heart ratio noted to be within normal limits 0.29. No significant extracardiac and abnormal radiotracer activities were noted. RV free wall uptake was noted to be WNL. IMPRESSION: Also refer to comments under nuclear interpretation. Also test results needs to be interpreted in the context of pretest probability. 1. No definitive areas of transient perfusion defect noted. 2. There is no definitive scintigraphic evidence of myocardial infarction/scar. 3. EKG gated imaging shows left ventricular ejection fraction of approx. 56 %. 4. Clinical correlation requested as occasionally single vessel disease or balanced ischemia could be missed. In approximately 10% of the cases Lexiscan may not cause adequate vasodilatory stress. RECOMMENDATIONS: Aggressive risk factor modification and medical management. Further evaluation may be needed if continued symptoms or other high risk indicators are noted on clinical evaluation. Close cardiology follow-up is also recommended. Clinical correlation with echocardiogram derived ejection fraction. Inability to exercise by itself can lead to increased cardiovascular event risks. Consider cardiology consultation and or follow-up if clinically indicated. 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 AVERY
[2017-06-08] MEDS ORDERED: REGADENOSON INJ 0.4 MG/5 ML DISP.SYRIN IV ONE (13:32)
[2017-06-08] MEDS ORDERED: AMINOPHYLLINE INJ/PF 250 MG/10 ML SDV IV ONE (13:32)
[2017-06-08] MEDS: OXYCODONE-ACETAMINOPHEN 5-325 MG TABLET PO PRN (18:07)
[2017-06-08] MEDS: INSULIN LISPRO 100 UNIT/ML 3 ML VIAL SUBCUT PRN (18:07)
[2017-06-08] MEDS: ASPIRIN 81 MG TABLET, ENT COATED PO SCH (18:07)
--- NOTE | 2017-06-08 19:24 | PDOC PROGRESS REPORT ---
Subjective Progress Note for:: 06/08/17 Subjective:: No complaints at present. Echo and EEG pending Reason For Visit: SYNCOPE Physical Exam Vital Signs: Temp Pulse Resp BP Pulse Ox 97.7 F 89 18 121/70 97 06/08/17 15:58 06/08/17 15:58 06/08/17 15:58 06/08/17 15:58 06/08/17 15:58 Intake & Output 06/07/17 06/08/17 06/09/17 06:59 06:59 06:59 Intake Total 450 1100 Balance 450 1100 Weight 118.9 kg General appearance: PRESENT: no acute distress, obese Head exam: PRESENT: normocephalic Eye exam: PRESENT: PERRLA Mouth exam: PRESENT: moist Neck exam: ABSENT: JVD Respiratory exam: PRESENT: clear to auscultation easton, symmetrical, unlabored Cardiovascular exam: PRESENT: RRR GI/Abdominal exam: PRESENT: normal bowel sounds, soft. ABSENT: tenderness Rectal exam: PRESENT: deferred Extremities exam: ABSENT: calf tenderness, pedal edema Neurological exam: PRESENT: alert, awake, oriented to person, oriented to place Psychiatric exam: PRESENT: appropriate affect Results Laboratory Results: 06/08/17 05:38 06/08/17 05:38 06/08/17 06/08/17 06/08/17 05:38 05:38 05:38 WBC RBC Hgb Hct MCV MCH MCHC RDW Plt Count Sodium 144.4 Potassium 3.9 Chloride 106 Carbon Dioxide 25 Anion Gap 13 BUN 12 Creatinine 0.66 Est GFR ( Amer) > 60 Est GFR (Non-Af Amer) > 60 Glucose 161 H Calcium 9.0 Phosphorus 4.2 Magnesium 2.0 Triglycerides 187 H Cholesterol 151.35 LDL Cholesterol Direct 93 VLDL Cholesterol 37.4 H HDL Cholesterol 31 L TSH 6.79 H 06/08/17 05:38 WBC 8.0 RBC 4.86 Hgb 14.0 Hct 41.7 MCV 86 MCH 28.8 MCHC 33.6 RDW 13.9 Plt Count 313 Sodium Potassium Chloride Carbon Dioxide Anion Gap BUN Creatinine Est GFR ( Amer) Est GFR (Non-Af Amer) Glucose Calcium Phosphorus Magnesium Triglycerides Cholesterol LDL Cholesterol Direct VLDL Cholesterol HDL Cholesterol TSH 06/07/17 06/07/17 11:25 17:09 CK-MB (CK-2) 0.58 0.49 Troponin I < 0.012 < 0.012 Impressions: Cervical Spine CT 06/07/17 09:09 IMPRESSION: NO ACUTE OR SIGNIFICANT FINDINGS IN THE CERVICAL SPINE. Head CT 06/07/17 09:09 IMPRESSION: NORMAL BRAIN CT WITHOUT CONTRAST. EVIDENCE OF ACUTE STROKE: NO. Assessment & Plan - Diagnosis (1) Syncope and collapse Is this a current diagnosis for this admission?: Yes Plan: Orthostatic BP normal. No evidence of dehydration on labs or exam. We will get serial cardiac enzymes. EKG and initial set of cardiac enzymes negative. Check echocardiogram and EEG Normal stress test. Monitor on telemetry. (2) Hypertension Qualifiers: Hypertension type: essential hypertension Qualified Code(s): I10 - Essential (primary) hypertension Is this a current diagnosis for this admission?: Yes Plan: Continue lisinopril and amlodipine. (3) Insulin dependent diabetes mellitus Is this a current diagnosis for this admission?: Yes Plan: Monitor blood glucose. Insulin 70/30 twice a day. Sliding scale Diabetic diet. (4) Hyperlipidemia Qualifiers: Hyperlipidemia type: other hyperlipidemia Qualified Code(s): E78.4 - Other hyperlipidemia Is this a current diagnosis for this admission?: Yes Plan: Continue Atorvastatin (5) Diabetic neuropathy Qualifiers: Diabetes mellitus type: type 2 Is this a current diagnosis for this admission?: Yes Plan: Continue Lyrica (6) Opiate dependence, continuous Is this a current diagnosis for this admission?: Yes Plan: Percocet as needed (7) Chronic back pain Is this a current diagnosis for this admission?: Yes Plan: Percocet as needed (8) Depression Is this a current diagnosis for this admission?: Yes Plan: Continue amitriptyline (9) Insomnia Is this a current diagnosis for this admission?: Yes Plan: As above. - Time Time Spent with patient: 25-34 minutes
[2017-06-08] MEDS: AMITRIPTYLINE HCL 25 MG TABLET PO SCH (21:07)
[2017-06-09] MEDS: ATORVASTATIN CALCIUM 40 MG TABLET PO SCH (09:59)
[2017-06-09] MEDS: PREGABALIN 75 MG CAPSULE PO SCH ×2 (09:59→22:24)
[2017-06-09] MEDS: AMLODIPINE BESYLATE 2.5 MG TABLET PO SCH (09:59)
[2017-06-09] MEDS: LISINOPRIL 10 MG TABLET PO SCH (09:59)
[2017-06-09] MEDS: HUM INSULIN NPH/REG INSULIN HM 100 UNIT/1 ML 3 ML SUBCUT SCH ×2 (11:08→17:49)
--- NOTE | 2017-06-09 15:26 | Physician Advisory Note ---
Physician Advisor ProgressNote .: Pursuant to the plan for [facility], I have reviewed the medical record for this patient. Physician Advisor Statement: Please consider documenting, if you agree: 1. "exertional syncope, concerning for " 2. "obesity with BMI 41.9" Status: Syncope is typically an "Obs until proven otherwise" reason for hospitalization. However, exertional syncope is a rare, ominous medical issue that comes with a very high risk for a serious/life-threatening cause, & calls for an expedited, thorough workup. This is even more concerning in this patient with multiple cardiovascular risk factors (HTN, HLD, DM-2, morbid obesity, father w/CABG age 55) and lack of evidence for severe volume depletion , hypoglycemia, drug abuse, or likelihood of heat stroke (weather in the 60s F this week), [id number] warning, and complete loss of consciousness, not once but twice. -Certainly CAD was a strong likelihood in this case, and serial cardiac enzymes testing and stress testing were appropriate, but results so far unrevealing. And the stress testing logistics appear to have kept the patient from chance of getting ECHO done in first 24h. - Without a clear cause yet, continued monitoring and evaluation for cause is appropriate in this case. Doctor Naturopathic may need to become involved. Even after 48 hrs in hospital, attending is still concerned and ordering additional orthostatics testing. - Appropriate for this Medicaid patient to be made Inpatient status. Causes of exertional syncope can include: arrhythmia, such as long QT, Brugada syndrome,or WPW Valvular dz, such as , MVP, Ebsteins's anamoly Structural cardiac disease, such as hypertrophic cardiomyopathy, CAD, myocarditis, Marfan's syndrome Other abnormalities such as hypoglycemia, hyponatremia, heat stroke, anaphylaxia, pulmonary HTN Thanks! CK
[2017-06-09] MEDS: OXYCODONE-ACETAMINOPHEN 5-325 MG TABLET PO PRN ×2 (15:50→22:24)
--- NOTE | 2017-06-09 16:53 | XCELERA REPORT ---
[address] [address] Transthoracic Echocardiogram Report Name: FRANKIE STANTON Age: 42 yrs Gender: Male : 1975 Patient Status: Inpatient Patient Location: [address] [place], [place] [id number] Study Date: 06/09/2017 09:28 AM Height: 66 in Weight: 250 lb BSA: 2.2 m2 Procedure: A complete two-dimensional transthoracic echocardiogram was performed (2D, M-mode, spectral and color flow Doppler). The study was technically difficult with many images being suboptimal in quality. Reason For Study: Syncope Ordering Physician: KELLY FITZPATRICK Performed By: Narda Kang Interpretation Summary The left ventricular ejection fraction is within normal limits. Doppler measurements suggest pseudonormalized left ventricular relaxation, which is associated with grade II/IV or mild to moderate diastolic dysfunction Wall motion cannot be accurately commented on, but no definite regional wall motion abnormalities noted. The right ventricle is mildly dilated. The right ventricular systolic function is normal. The right atrium is mildly dilated. Borderline left atrial enlargement. There is no mitral valve stenosis. There is a trace amount of mitral regurgitation There is no aortic valve stenosis No aortic regurgitation is present. There is a trace or physiologic amount of tricuspid regurgitation Tricuspid regurgitation jet envelope not well defined to measure RV systolic pressure accurately. There is no pericardial effusion. MMode/2D Measurements & Calculations RVDd: 2.8 cm LVIDd: 4.2 cm FS: 37.0 % Ao root diam: 3.1 cm IVSd: 1.1 cm LVIDs: 2.7 cm EDV(Teich): 80.4 ml LVPWd: 1.1 cm ESV(Teich): 26.3 ml Ao root area: 7.5 cm2 EF(Teich): 67.3 % Doppler Measurements & Calculations MV E max marika: MV dec slope: Ao V2 max: LV V1 max P.4 cm/sec 110.5 cm/sec 2.8 mmHg MV A max marika: 277.3 cm/sec2 Ao max PG: LV V1 max: 66.4 cm/sec MV dec time: 4.9 mmHg 83.1 cm/sec MV E/A: 0.91 0.22 sec PA V2 max: TR max marika: 76.9 cm/sec 204.4 cm/sec PA max PG: TR max P.7 mmHg 2.4 mmHg Left Ventricle The left ventricle is grossly normal size. There is mild concentric left ventricular hypertrophy. The left ventricular ejection fraction is within normal limits. Doppler measurements suggest pseudonormalized left ventricular relaxation, which is associated with grade II/IV or mild to moderate diastolic dysfunction. Wall motion cannot be accurately commented on, but no definite regional wall motion abnormalities noted. Right Ventricle The right ventricle is mildly dilated. The right ventricular systolic function is normal. Atria The right atrium is mildly dilated. Borderline left atrial enlargement. Interarterial septum not well visualized and not well dopplered. Cannot comment on ASD/PFO presence. Mitral Valve The mitral valve is grossly normal. There is no mitral valve stenosis. There is a trace amount of mitral regurgitation. Aortic Valve The aortic valve is not well visualized secondary to technical limitations. There is no aortic valve stenosis. No aortic regurgitation is present. Tricuspid Valve The tricuspid valve is not well visualized secondary to technical limitations. There is no tricuspid stenosis. There is a trace or physiologic amount of tricuspid regurgitation. Tricuspid regurgitation jet envelope not well defined to measure RV systolic pressure accurately. Pulmonic Valve The pulmonic valve is not well visualized. Great Vessels The aortic root is not well visualized. The inferior vena cava was not well visualized. Effusions There is no pericardial effusion. : KELLY FITZPATRICK > Lurdes Hightower
[2017-06-09] MEDS: ASPIRIN 81 MG TABLET, ENT COATED PO SCH (17:49)
--- NOTE | 2017-06-09 18:14 | PDOC PROGRESS REPORT ---
Subjective Progress Note for:: 06/09/17 Subjective:: 42 year old male with a Insulin-dependent diabetes Hypertension Diabetic neuropathy Chronic back pain due to degenerative disc disease on chronic opiates Depression Insomnia He presented to the ER with 2 episodes of syncope. Aetiology unclear. Stress test and echocardiogram were unremarkable. EEG pending. His had noticed him having episodes of jerking and shaking during sleep which she felt might have been seizures. If EEG is normal, he will definitely need to be set up with a desk monitor upon discharge. Orthostatic blood pressures have been within normal limits. Reason For Visit: SYNCOPE Physical Exam Vital Signs: Temp Pulse Resp BP Pulse Ox 98.5 F 78 16 109/73 94 06/09/17 15:14 06/09/17 15:14 06/09/17 15:14 06/09/17 15:14 06/09/17 15:14 Intake & Output 06/08/17 06/09/17 06/10/17 06:59 06:59 06:59 Intake Total 450 1440 750 Balance 450 1440 750 Weight 118.9 kg 117.7 kg 117.7 kg General appearance: PRESENT: no acute distress, obese Head exam: PRESENT: normocephalic Eye exam: ABSENT: scleral icterus Ear exam: PRESENT: normal external ear exam Mouth exam: PRESENT: moist Neck exam: ABSENT: tenderness Respiratory exam: PRESENT: clear to auscultation easton, symmetrical Cardiovascular exam: PRESENT: RRR GI/Abdominal exam: PRESENT: normal bowel sounds, soft. ABSENT: tenderness Rectal exam: PRESENT: deferred Extremities exam: ABSENT: pedal edema Neurological exam: PRESENT: alert, awake, oriented to person, oriented to place , oriented to time, oriented to situation Psychiatric exam: PRESENT: appropriate affect Skin exam: ABSENT: petechiae Results Laboratory Results: 06/08/17 05:38 06/08/17 05:38 06/07/17 06/07/17 11:25 17:09 CK-MB (CK-2) 0.58 0.49 Troponin I < 0.012 < 0.012 Impressions: Cervical Spine CT 06/07/17 09:09 IMPRESSION: NO ACUTE OR SIGNIFICANT FINDINGS IN THE CERVICAL SPINE. Head CT 06/07/17 09:09 IMPRESSION: NORMAL BRAIN CT WITHOUT CONTRAST. EVIDENCE OF ACUTE STROKE: NO. Assessment & Plan - Diagnosis (1) Syncope and collapse Is this a current diagnosis for this admission?: Yes Plan: Orthostatic BP normal. No evidence of dehydration on labs or exam. We will get serial cardiac enzymes. EKG and cardiac enzymes negative. Normal echocardiogram and stress test. EEG pending Will need desk monitor on discharge Monitor on telemetry. (2) Hypertension Qualifiers: Hypertension type: essential hypertension Qualified Code(s): I10 - Essential (primary) hypertension Is this a current diagnosis for this admission?: Yes Plan: Continue lisinopril and amlodipine. (3) Insulin dependent diabetes mellitus Is this a current diagnosis for this admission?: Yes Plan: Monitor blood glucose. Continue Insulin 70/30 twice a day. Sliding scale Diabetic diet. (4) Hyperlipidemia Qualifiers: Hyperlipidemia type: other hyperlipidemia Qualified Code(s): E78.4 - Other hyperlipidemia Is this a current diagnosis for this admission?: Yes Plan: Continue Atorvastatin (5) Diabetic neuropathy Qualifiers: Diabetes mellitus type: type 2 Is this a current diagnosis for this admission?: Yes Plan: Continue Lyrica (6) Opiate dependence, continuous Is this a current diagnosis for this admission?: Yes Plan: Percocet as needed (7) Chronic back pain Is this a current diagnosis for this admission?: Yes Plan: Percocet as needed (8) Depression Is this a current diagnosis for this admission?: Yes Plan: Continue amitriptyline (9) Insomnia Is this a current diagnosis for this admission?: Yes Plan: As above. - Time Time Spent with patient: 35 or more minutes
[2017-06-09] MEDS: AMITRIPTYLINE HCL 25 MG TABLET PO SCH (22:24)
[2017-06-10] MEDS: HUM INSULIN NPH/REG INSULIN HM 100 UNIT/1 ML 3 ML SUBCUT SCH ×2 (08:45→17:03)
[2017-06-10] MEDS: INSULIN LISPRO 100 UNIT/ML 3 ML VIAL SUBCUT PRN ×2 (08:45→17:03)
[2017-06-10] MEDS: ATORVASTATIN CALCIUM 40 MG TABLET PO SCH (09:28)
[2017-06-10] MEDS: LISINOPRIL 10 MG TABLET PO SCH (09:28)
[2017-06-10] MEDS: PREGABALIN 75 MG CAPSULE PO SCH ×2 (09:29→23:00)
[2017-06-10] MEDS: AMLODIPINE BESYLATE 2.5 MG TABLET PO SCH (09:29)
[2017-06-10] MEDS ORDERED: LISINOPRIL 10 MG TABLET PO SCH (15:49)
--- NOTE | 2017-06-10 15:51 | PDOC PROGRESS REPORT ---
Subjective Progress Note for:: 06/10/17 Subjective:: The patient is an extremely pleasant 42-year-old male. He has known insulin-dependent diabetes mellitus, hypertension, chronic pain with continuous narcotic use as well as diabetic neuropathy. He presented to the emergency room after having 2 syncopal episodes. The patient was riding his bicycle to work and had been riding for about 10 minutes and the next thing he remembers is waking up on the ground. He felt quite weak and walked back to his house and as he was entering his house he had another syncopal episode. There were no reported seizure-like movements and no incontinence or tongue biting. He presented to the emergency room. His workup has been totally unremarkable. He had a 2D echocardiogram which revealed grade 2 diastolic dysfunction. He had an unremarkable stress test. There is been no acute events on his cardiac monitoring. He states that this morning when he stood up he became quite dizzy again. He has had orthostatic vitals checked and he is not clearly orthostatic. I had a long discussion with the patient. He is quite worried as his father had a quadruple 8 bypass at the age of 55. He just feels nervous about going home at this point. After a long discussion we have decided to pursue a cardiology evaluation. He might benefit from outpatient cardiology cardiac monitoring in the event that he has a cardiac dysrhythmia that we have not discovered. 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 Overall lying in the bed he has no fever or chills. No chest pain, shortness of breath or cough. No nausea vomiting or diarrhea. No dysuria, frequency or hematuria Reason For Visit: RECURRENT SYNCOPE Physical Exam Vital Signs: Temp Pulse Resp BP Pulse Ox 97.9 F 79 12 121/71 95 06/10/17 10:00 06/10/17 10:00 06/10/17 10:00 06/10/17 10:00 06/10/17 10:00 Intake & Output 06/09/17 06/10/17 06/11/17 06:59 06:59 06:59 Intake Total 480 Output Total 800 Balance -320 Weight 117.5 kg General appearance: PRESENT: no acute distress, well-developed, well-nourished Head exam: PRESENT: atraumatic, normocephalic Mouth exam: PRESENT: moist, tongue midline Neck exam: ABSENT: carotid bruit, JVD, lymphadenopathy, thyromegaly Respiratory exam: PRESENT: clear to auscultation [place]. ABSENT: rales, rhonchi, wheezes Cardiovascular exam: PRESENT: RRR. ABSENT: diastolic murmur, rubs, systolic murmur GI/Abdominal exam: PRESENT: normal bowel sounds, soft. ABSENT: distended, guarding, mass, organolmegaly, rebound, tenderness Rectal exam: PRESENT: deferred Extremities exam: PRESENT: full ROM. ABSENT: calf tenderness, clubbing, pedal edema Neurological exam: PRESENT: alert, awake, oriented to person, oriented to place , oriented to time, oriented to situation, CN II-XII grossly intact. ABSENT: motor sensory deficit Psychiatric exam: PRESENT: appropriate affect, normal mood. ABSENT: homicidal ideation, suicidal ideation Skin exam: PRESENT: dry, intact, warm. ABSENT: cyanosis, rash Results Impressions: Cervical Spine CT 06/07/17 09:09 IMPRESSION: NO ACUTE OR SIGNIFICANT FINDINGS IN THE CERVICAL SPINE. Head CT 06/07/17 09:09 IMPRESSION: NORMAL BRAIN CT WITHOUT CONTRAST. EVIDENCE OF ACUTE STROKE: NO. Assessment & Plan - Diagnosis (1) Syncope and collapse Is this a current diagnosis for this admission?: Yes Plan: The patient may have had some orthostasis. However exertional syncope is somewhat concerning. The patient was riding his bike when he had this episode and then was walking back to the house when he had the second episode. Will consult cardiology and get them to look at the case. His blood pressure has been a little bit on the low side. He could have some autonomic dysfunction due to his underlying diabetes. We will await further recommendations from cardiology. He also has had an EEG performed. The results have not yet been read (2) Insulin dependent diabetes mellitus Is this a current diagnosis for this admission?: Yes Plan: Continue current regimen. (3) Diabetic neuropathy Qualifiers: Diabetes mellitus type: type 2 Is this a current diagnosis for this admission?: Yes Plan: Continue Lyrica (4) Chronic back pain Is this a current diagnosis for this admission?: Yes Plan: He has chronic pain with continuous narcotic use. Continue his home regimen (5) Opiate dependence, continuous Is this a current diagnosis for this admission?: Yes Plan: Stable on current regimen. I will not escalate his narcotics here in the hospital (6) Hyperlipidemia Qualifiers: Hyperlipidemia type: other hyperlipidemia Qualified Code(s): E78.4 - Other hyperlipidemia Is this a current diagnosis for this admission?: Yes Plan: Continue statin medication (7) Hypertension Qualifiers: Hypertension type: essential hypertension Qualified Code(s): I10 - Essential (primary) hypertension Is this a current diagnosis for this admission?: Yes Plan: He is on very little medication. I am wondering whether the patient's blood pressure is dropping causing some of his issues. He is only on lisinopril 10 mg daily as well as amlodipine 2.5 mg daily. We will cut his lisinopril back to 5 mg daily and continue to monitor (8) Depression Is this a current diagnosis for this admission?: Yes Plan: Stable (9) Hypogonadism in male Is this a current diagnosis for this admission?: Yes Plan: Continue testosterone (10) Insomnia Is this a current diagnosis for this admission?: Yes Plan: Continue amitriptyline at night (11) Morbid obesity Is this a current diagnosis for this admission?: Yes Plan: Dietary discretion is advised (12) Full code status Is this a current diagnosis for this admission?: Yes - Time Time Spent with patient: 25-34 minutes - Inpatient Certification Medical Necessity: Other - Inpatient hospitalization remains necessary. We are waiting on EEG results as well as a cardiology evaluation. I did tell the patient I was comfortable sending him home with outpatient follow-up but he was quite nervous and we are going to get cardiology's opinion prior to him leaving the hospital. I am unsure when they are going to be able to read his EEG but certainly he could follow-up at his outpatient physician office.
[2017-06-10] MEDS: ASPIRIN 81 MG TABLET, ENT COATED PO SCH (17:08)
[2017-06-10] MEDS: OXYCODONE-ACETAMINOPHEN 5-325 MG TABLET PO PRN ×2 (17:08→23:00)
[2017-06-10] MEDS: AMITRIPTYLINE HCL 25 MG TABLET PO SCH (23:00)
[2017-06-11] MEDS ORDERED: ONDANSETRON 4 MG TAB.RAPDIS PO PRN (07:30)
[2017-06-11 08:20] VITALS: BP 114/87
[2017-06-11] MEDS: INSULIN LISPRO 100 UNIT/ML 3 ML VIAL SUBCUT PRN (09:18)
[2017-06-11] MEDS: PREGABALIN 75 MG CAPSULE PO SCH (09:18)
[2017-06-11] MEDS: AMLODIPINE BESYLATE 2.5 MG TABLET PO SCH (09:18)
[2017-06-11] MEDS: HUM INSULIN NPH/REG INSULIN HM 100 UNIT/1 ML 3 ML SUBCUT SCH (09:21)
[2017-06-11] MEDS ORDERED: LISINOPRIL 5 MG TABLET PO SCH (10:00)
--- NOTE | 2017-06-11 13:15 | PDOC CONSULTATION ---
Consultation Consult Date: 06/10/17 Attending physician:: KELLY FITZPATRCIK Consult reason:: Syncope and cardiac risk assessment History of Present Illness Admission Date/PCP: 06/09/17 18:05 LIZZY KESSLER DO Patient complains of: Syncope and cardiac risk assessment History of Present Illness: FRANKIE STANTON is a 42 year old male presented to the emergency room today after 2 syncopal episodes. He was in his usual state of health when he decided to ride his bicycle to work. He had not checked his blood sugars in the morning nor taken any of his medications. His blood sugars are usually run high. After riding his bike for approximately 10 minutes he started seeing stars/ thoughts and the next thing he remembers is waking up on the ground. He felt weak. He walked back to his house and as a he was entering he had another syncopal episode. There was no reported seizure-like movements. No incontinence no tongue biting. He denies any chest pain or palpitations at any time. He reports that his had noticed him shaking during sleep a couple of times approximately a year ago. This was never followed up. He is not aware of any history of seizures. His father had a quadruple bypass at the age of 55. He denies any chest pain palpitations or shortness of breath at present. Last week he had a self-limited episode of nausea vomiting and diarrhea. That has resolved. This history was reviewed and supplemented. Patient claims that he did not eat breakfast that morning of presentation because he felt nauseous. Patient continued to felt nauseous but still went to work by biking. Subsequently he passed out. Patient claims that nobody observed the spell as this was early in the morning. Subsequently he gathered his bike and walked himself home. He had a second syncopal spell at home which resulted him presenting in the ER. Patient denied any prior history of syncope or near syncope. Patient denies any prior history of heart problems, sustained palpitations, seizure disorder. Patient does have history of sleep apnea but not on CPAP therapy as difficulty with insurance and affording it. Past Medical History Cardiac Medical History: Reports: Hyperlipidema, Hypertension Neurological Medical History: Reports: Migraine Endocrine Medical History: Reports: Diabetes Mellitus Type 2 GI Medical History: Reports: Gastroesophageal Reflux Disease Psychiatric Medical History: Denies: Depression Past Surgical History Past Surgical History: Reports: Other - Ears surgery 7 lymph node removed from left arm Social History Information Source: Patient Lives with: Spouse/Significant other Smoking Status: Never Smoker Frequency of Alcohol Use: None Hx Recreational Drug Use: No Drugs: None Hx Prescription Drug Abuse: No - Advance Directive Resuscitation Status: Full Code Family History Family History: Arthritis, CAD, COPD, DM, Hyperlipidemia, Hypertension, Thyroid Disfunction, Other - Father: CAD; Grandfather: "rare blood disorder". denies: CVA, Malignancy Parental Family History Reviewed: Yes Children Family History Reviewed: Yes Sibling(s) Family History Reviewed.: Yes Medication/Allergy Home Medications: Amitriptyline HCl [Elavil 25 mg Tablet] 25 mg PO QHS 06/07/17 Amlodipine Besylate [Norvasc 2.5 mg Tablet] 2.5 mg PO DAILY 06/07/17 Atorvastatin Calcium [Lipitor 40 mg Tablet] 40 mg PO DAILY 06/07/17 Ergocalciferol (Vitamin D2) [Vitamin D2] 50,000 unit PO WE@1000 06/07/17 Insulin Lispro [Humalog Insulin (Lispro) 100 unit/mL] See Protocol SUBCUT MEALS 06/07/17 Lisinopril [Prinivil 10 mg Tablet] 10 mg PO DAILY 06/07/17 Metformin HCl [Glucophage] 1,000 mg PO BID 06/07/17 NPH, Human Insulin Isophane [Humulin N (NPH) Insulin 100 unit/mL] 42 unit SUBCUT .SLIDING SCALE 06/07/17 Oxycodone HCl/Acetaminophen [Percocet 10-325 mg Tablet] 1 each PO Q6HP PRN 06/07 Pregabalin [Lyrica] 150 mg PO Q12 06/07/17 Testosterone [Androgel] 1 applic TD DAILY 06/07/17 Aspirin [Ecotrin 81 mg EC Tablet] 81 mg PO QPM tabec 06/11/17 Allergies/Adverse Reactions: No Known Allergies Allergy (Verified 06/07/17 07:36) Review of Systems Review of Systems: Please see history of present illness and past medical history as wall. Constitutional: No fever or chills reported. Head : No recent chronic headaches, recent head injury. Eyes: No recent eye pain, diplopia, redness, discharge, acute visual changes. Ears: No recent chronic ear pain, acute hearing loss, ear discharge. Oral cavity: No recent ulcerations, bleeding, oral cavity discomfort. Neck: No recent acute neck pain reported. Hematologic: No recent easy bruising or bleeding. Lymphatic: No recent lymph node enlargement reported. Cardiovascular system review: See history of present illness. Respiratory system review: No hemoptysis or blood clots in the lungs reported. Mild Shortness of breath on exertion Gastrointestinal system review: Negative for any recent acute hematemesis, melena. Genitourinary system review: No recent acute or chronic hematuria, flank pain, UTI etc. reported. Skin system review: Negative for any recent abnormal bruising, no rash, no pruritus reported. Neurologic: No prior history of strokes, mini strokes, seizure disorder. History of syncope as noted above. Patient has history of sleep apnea but not being treated. Psychologic: No history of major psychosis or major depression reported. Musculoskeletal: Minor aches and pains reported. No acute joint swelling reported. Endocrine: No recent polyuria, polydipsia, recent heat or cold intolerance. Physical Exam Vital Signs: Temp Pulse Resp BP Pulse Ox 98.2 F 84 12 110/65 95 06/10/17 14:00 06/10/17 14:00 06/10/17 14:00 06/10/17 14:00 06/10/17 14:00 Intake & Output 06/09/17 06/10/17 06/11/17 06:59 06:59 06:59 Intake Total 480 957 Output Total 800 Balance -320 957 Weight 117.5 kg Exam: GENERAL: well-nourished and in no acute distress. Alert and oriented x3 HEAD: Atraumatic, normocephalic. EYES: Pupils equal round and reactive to light, extraocular movements intact, sclera anicteric, conjunctiva are normal. ENT: TMs normal, nares patent, oropharynx clear without exudates. Moist mucous membranes. No oral ulcerations or bleeding gums noted NECK: supple without lymphadenopathy. Trachea is central. No cervical or axillary lymphadenopathy noted. Carotids are 2+, JVD WNL LUNGS: Respiration seems nonlabored, no significant accessory muscle action noted. Breath sounds clear to auscultation bilaterally and equal noted. No wheezes rales or rhonchi noted. No significant dullness noted on percussion. CHEST: Palpation of the chest wall shows no significant chest wall tenderness. 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 ABDOMEN: Soft, no significant tenderness appreciated, normoactive bowel sounds. No guarding, no rebound. No rigidity noted . No masses appreciated. EXTREMITIES: Pedal pulses are 1-2+, no calf tenderness noted. No clubbing or cyanosis. negative pedal edema noted NEUROLOGICAL: Focused neurological exam showed no significant neurologic deficit. Normal speech, no focal weakness appreciated. PSYCH: Normal mood, normal affect. Judgment and insight within normal limits. SKIN: No significant ecchymosis, skin is noted to be warm. MUSCULOSKELETAL EXAM: No significant acute joint swelling noted. Results EKG Comments: Sinus rhythm, no acute ST-T wave changes are noted. Impressions: Cervical Spine CT 06/07/17 09:09 IMPRESSION: NO ACUTE OR SIGNIFICANT FINDINGS IN THE CERVICAL SPINE. Head CT 06/07/17 09:09 IMPRESSION: NORMAL BRAIN CT WITHOUT CONTRAST. EVIDENCE OF ACUTE STROKE: NO. 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 use: unspecified longterm insulin use status Diabetes mellitus complication status : with unspecified complications Qualified Code(s): E11.8 - Type 2 diabetes mellitus with unspecified complications Is this a current diagnosis for this admission?: Yes (4) Obesity Qualifiers: Obesity type: unspecified obesity type Is this a current diagnosis for this admission?: Yes (5) Sleep apnea syndrome Qualifiers: Sleep apnea type: unspecified type Qualified Code(s): G47.30 - Sleep apnea , unspecified Is this a current diagnosis for this admission?: Yes (6) Family history of premature CAD Is this a current diagnosis for this admission?: Yes (7) Hyperlipidemia Qualifiers: Hyperlipidemia type: other hyperlipidemia Qualified Code(s): E78.4 - Other hyperlipidemia Is this a current diagnosis for this admission?: Yes - Notes Notes: Syncope and collapse: Most likely vasovagal/neurocardiogenic. Patient has been monitored for several days during this hospitalization and no significant cardiac dysrhythmia was noted. 2D echo shows normal LVEF. Stress test was negative for any pharmacologic stress-induced ischemia. Twelve-lead EKG shows QTC WNL. Patient advised to avoid getting dehydrated. Patient will do better with avoiding vasodilators and diuretics for hypertension therapy. Hypertension: Blood pressure goal in this patient is 135/85 or less. This was discussed with the patient. Currently blood pressure under reasonable control. Better medication for this patient are BRIAN inhibitor/ARB/beta lydia etc. discussed side effects of uncontrolled hypertension and also severe hypotension. Diabetes: Recommend good control of blood sugar. However should avoid any hypoglycemia and hyperglycemia. Patient being expertly managed by primary care M.D/hospitalist Sleep apnea syndrome: Patient advised to go on CPAP therapy. Discussed that I will be happy to help him in this regard. Hyperlipidemia: LDL goal is less than 70. Recommend statin therapy at least intermediate or high dose, of high potency status. Periodic lipid panel and liver panel is indicated. Patient to report any significant muscle discomfort or other side effects. Family history of premature coronary artery disease: Patient advised on risk factor modification and healthy lifestyle. Patient can follow-up with me as an outpatient if he wishes. - Time Time Spent: 30 to 50 Minutes - CODE STATUS was discussed, patient remains full code. Surrogate decision-maker patient's . Multiple medical problems were addressed. More than 50% of the time spent coordinating care, discussing management plans with involved caregivers. Management plans discussed with involved personnels. Medical decision making was of moderate to high complexity , patient's has multiple comorbidities. Medications reviewed and adjusted accordingly: Yes
[2017-06-11] MEDS ORDERED: ASPIRIN 81 MG TABLET, ENT COATED PO SCH (18:00)
--- NOTE | 2017-06-11 20:13 | PDOC PROGRESS REPORT ---
Subjective Progress Note for:: 06/11/17 Subjective:: Patient seems to be doing better with gradual improvement. Pt is denying any chest arm or neck discomfort. Patient denying any PND, orthopnea. Patient denied any sustained palpitations, dizziness, syncope, near syncope. Patient denying any fever chills. Patient denying any other significant discomfort. Patient is maintaining sinus rhythm. Review of systems: Rest review of systems negative. Medications: Medications have been reviewed. Reason For Visit: RECURRENT SYNCOPE Physical Exam Vital Signs: Temp Pulse Resp BP Pulse Ox 97.7 F 77 14 114/87 H 97 06/11/17 11:04 06/11/17 11:04 06/11/17 11:04 06/11/17 11:04 06/11/17 11:04 Intake & Output 06/10/17 06/11/17 06/12/17 06:59 06:59 06:59 Intake Total 480 1437 Output Total 800 900 Balance -320 537 Weight 117.5 kg 118 kg Exam: GENERAL: well-nourished and in no acute distress. Alert and oriented x3 HEAD: Atraumatic, normocephalic. EYES: Pupils equal round and reactive to light, extraocular movements intact, sclera anicteric, conjunctiva are normal. ENT: TMs normal, nares patent, oropharynx clear without exudates. Moist mucous membranes. No oral ulcerations or bleeding gums noted NECK: supple without lymphadenopathy. Trachea is central. No cervical or axillary lymphadenopathy noted. Carotids are 2+, JVD WNL LUNGS: Respiration seems nonlabored, no significant accessory muscle action noted. Breath sounds clear to auscultation bilaterally and equal noted. No wheezes rales or rhonchi noted. No significant dullness noted on percussion. CHEST: Palpation of the chest wall shows no significant chest wall tenderness. 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 ABDOMEN: Soft, no significant tenderness appreciated, normoactive bowel sounds. No guarding, no rebound. No rigidity noted . No masses appreciated. EXTREMITIES: Pedal pulses are 1-2+, no calf tenderness noted. No clubbing or cyanosis. negative pedal edema noted NEUROLOGICAL: Focused neurological exam showed no significant neurologic deficit. Normal speech, no focal weakness appreciated. PSYCH: Normal mood, normal affect. Judgment and insight within normal limits. SKIN: No significant ecchymosis, skin is noted to be warm. MUSCULOSKELETAL EXAM: No significant acute joint swelling noted. Results EKG Comments: Shows sinus rhythm without any sustained tachycardia or bradycardia. Impressions: Cervical Spine CT 06/07/17 09:09 IMPRESSION: NO ACUTE OR SIGNIFICANT FINDINGS IN THE CERVICAL SPINE. Head CT 06/07/17 09:09 IMPRESSION: NORMAL BRAIN CT WITHOUT CONTRAST. EVIDENCE OF ACUTE STROKE: NO. Assessment & Plan - Diagnosis (1) Diabetes Qualifiers: Diabetes mellitus type: type 2 Diabetes mellitus retirement insulin use: unspecified retirement insulin use status Diabetes mellitus complication status : with unspecified complications Qualified Code(s): E11.8 - Type 2 diabetes mellitus with unspecified complications Is this a current diagnosis for this admission?: Yes (2) Family history of premature CAD Is this a current diagnosis for this admission?: Yes (3) Hyperlipidemia Qualifiers: Hyperlipidemia type: other hyperlipidemia Qualified Code(s): E78.4 - Other hyperlipidemia Is this a current diagnosis for this admission?: Yes (4) Hypertension Qualifiers: Hypertension type: essential hypertension Qualified Code(s): I10 - Essential (primary) hypertension Is this a current diagnosis for this admission?: Yes (5) Sleep apnea syndrome Qualifiers: Sleep apnea type: unspecified type Qualified Code(s): G47.30 - Sleep apnea , unspecified Is this a current diagnosis for this admission?: Yes (6) Syncope and collapse Is this a current diagnosis for this admission?: Yes - Notes Notes: Patient was seen yesterday in the evening. At that time, we discussed in general terms risk factor modification. Today this discussion was carried on further. Patient has been advised to lose weight, have better control of his diabetes, hypertension, and eat healthy and get on a regular exercise program. Patient told that he needed to get back on the CPAP therapy as sleep apnea can increase risk of syncope and also increased risk of sudden . Patient understood. He was given my card. He could follow-up with me if he wishes. His cardiac risk factors were reviewed in detail. - Time Time with patient: 15-25 minutes - CODE STATUS was discussed, patient remains full code. Surrogate decision-maker unchanged. Multiple medical problems were addressed. More than 50% of the time spent coordinating care, discussing management plans with involved caregivers. Management plans discussed with involved personnels. Medical decision making was of moderate to high complexity , patient's has multiple comorbidities. Medications reviewed and adjusted accordingly: Yes
[2017-06-11] MEDS ORDERED: ATORVASTATIN CALCIUM 40 MG TABLET PO SCH (22:00)
--- NOTE | 2017-06-12 14:57 | PDOC DISCHARGE SUMMARY ---
General - Admit/Disc Date/PCP Admission Date/Primary Care Provider: 06/09/17 18:05 LIZZY KESSLER, Discharge Date: 06/11/17 - Discharge Diagnosis (1) Syncope and collapse Is this a current diagnosis for this admission?: Yes Summary: Probably orthostatic from volume depletion. Resolved (2) Chronic back pain Is this a current diagnosis for this admission?: Yes Summary: Continue home medications (3) Depression Is this a current diagnosis for this admission?: Yes Summary: Continue home medications (4) Hyperlipidemia Is this a current diagnosis for this admission?: Yes Summary: Continue home medications (5) Hypertension Is this a current diagnosis for this admission?: Yes Summary: Continue home medications (6) Hypogonadism in male Is this a current diagnosis for this admission?: Yes Summary: Continue home medications (7) Insulin dependent diabetes mellitus Is this a current diagnosis for this admission?: Yes Summary: Continue home medications (8) Morbid obesity Is this a current diagnosis for this admission?: Yes (9) Opiate dependence, continuous Is this a current diagnosis for this admission?: Yes Summary: Continue home medications - Additional Information Resuscitation Status: Full Code Discharge Diet: Diabetic Discharge Activity: Activity As Tolerated Home Medications: Amitriptyline HCl [Elavil 25 mg Tablet] 25 mg PO QHS 06/07/17 Amlodipine Besylate [Norvasc 2.5 mg Tablet] 2.5 mg PO DAILY 06/07/17 Atorvastatin Calcium [Lipitor 40 mg Tablet] 40 mg PO DAILY 06/07/17 Ergocalciferol (Vitamin D2) [Vitamin D2] 50,000 unit PO WE@1000 06/07/17 Insulin Lispro [Humalog Insulin (Lispro) 100 unit/mL] See Protocol SUBCUT MEALS 06/07/17 Lisinopril [Prinivil 10 mg Tablet] 10 mg PO DAILY 06/07/17 Metformin HCl [Glucophage] 1,000 mg PO BID 06/07/17 NPH, Human Insulin Isophane [Humulin N (NPH) Insulin 100 unit/mL] 42 unit SUBCUT .SLIDING SCALE 06/07/17 Oxycodone HCl/Acetaminophen [Percocet 10-325 mg Tablet] 1 each PO Q6HP PRN 06/07 Pregabalin [Lyrica] 150 mg PO Q12 06/07/17 Testosterone [Androgel] 1 applic TD DAILY 06/07/17 Aspirin [Ecotrin 81 mg EC Tablet] 81 mg PO QPM tabec 06/11/17 History of Present Illness History of Present Illness: FRANKIE STANTON is a 42 year old male who presented to the emergency room today after 2 syncopal episodes. He was in his usual state of health when he decided to ride his bicycle to work. He had not checked his blood sugars in the morning nor taken any of his medications. His blood sugars are usually run high. After riding his bike for approximately 10 minutes he started seeing stars/ thoughts and the next thing he remembers is waking up on the ground. He felt weak. He walked back to his house and as a he was entering he had another syncopal episode. There was no reported seizure-like movements. No incontinence no tongue biting. He denies any chest pain or palpitations at any time. He reports that his had noticed him shaking during sleep a couple of times approximately a year ago. This was never followed up. He is not aware of any history of seizures. His father had a quadruple bypass at the age of 55. The patient has never had a stress test. He denies any chest pain palpitations or shortness of breath at present. Last week he had a self-limited episode of nausea vomiting and diarrhea. That has resolved. No recent change in medications. Orthostatic blood pressures were checked in the emergency room and these were negative. Hospital Course Hospital Course: He was monitored on telemetry which is unremarkable, he was seen in consultation by cardiology who recommended an outpatient sleep study. Echocardiogram was nondiagnostic. Cardiolite stress test was also negative. At this point he feels better and would like to go home. Physical Exam Vital Signs: Temp Pulse Resp BP Pulse Ox 97.7 F 77 14 114/87 H 97 06/11/17 11:04 06/11/17 11:04 06/11/17 11:04 06/11/17 11:04 06/11/17 11:04 Intake & Output 06/11/17 06/12/17 06/13/17 06:59 06:59 06:59 Intake Total 1437 Output Total 900 Balance 537 Weight 260 lb 2.327 oz General appearance: PRESENT: no acute distress, morbidly obese Respiratory exam: PRESENT: clear to auscultation [place] Cardiovascular exam: PRESENT: RRR GI/Abdominal exam: PRESENT: soft Musculoskeletal exam: PRESENT: normal inspection Neurological exam: PRESENT: alert Psychiatric exam: PRESENT: appropriate affect Skin exam: PRESENT: dry, warm Results Impressions: Cervical Spine CT 06/07/17 09:09 IMPRESSION: NO ACUTE OR SIGNIFICANT FINDINGS IN THE CERVICAL SPINE. Head CT 06/07/17 09:09 IMPRESSION: NORMAL BRAIN CT WITHOUT CONTRAST. EVIDENCE OF ACUTE STROKE: NO. Qualifiers - * PATIENT BEING DISCHARGED WITH ANY OF THE FOLLOWING DIAGNOSIS: No
== END 2017-06-11 11:30 | disposition home or self-care (01) | DRG 312 ==
LOC: ER 07:27 → EH 11:16 → 4N 13:50 → OBSVTOIN 06-09 18:05
PROVIDERS: ADMIT Emergency Medicine; ATTEND Emergency Medicine
DX: R55 Syncope and collapse (principal); Z68.41 Body mass index [BMI] 40.0-44.9, adult; F11.20 Opioid dependence, uncomplicated; E78.5 Hyperlipidemia, unspecified; K21.9 Gastro-esophageal reflux disease without esophagitis; I10 Essential (primary) hypertension; R51 Headache; E11.40 Type 2 diabetes mellitus with diabetic neuropathy, unspecified; M54.9 Dorsalgia, unspecified; F32.9 Major depressive disorder, single episode, unspecified; G47.00 Insomnia, unspecified; E29.1 Testicular hypofunction; E66.01 Morbid (severe) obesity due to excess calories; Z79.84 Long term (current) use of oral hypoglycemic drugs; Z79.4 Long term (current) use of insulin; Z79.899 Other long term (current) drug therapy; Z82.49 Family history of ischemic heart disease and other diseases of the circulatory system
CPT/HCPCS: 36415; 70450; 72125; 78452; 80048; 80053; 80061; 80307; 81001; 82550; 82553; 82962; 83036; 83735; 84100; 84443; 84484; 85025; 85027; 85379; 85610; 85730; 93005; 93010; 93017; 93306; 95819; 96361; 96374; 99285; A9500; G0378; J0280; J1815; J2405; J2785; J3490; J7030; Q9969

== ENCOUNTER 2017-08-17 12:21 | Emergency (ER) | payer MEDICAID ==
[2017-08-17 12:33] VITALS: BP 136/89
--- NOTE | 2017-08-17 13:05 | ER Document Report ---
ED General - General Chief Complaint: Nausea/Vomiting/Diarrhea Stated Complaint: NAUSEA/VOMMITING Time Seen by Provider: 08/17/17 12:52 Mode of Arrival: Ambulatory Information source: Patient Notes: 42 yr old male presents with complaints of nausea vomiting diarrhea of a few hour duration. pt dneies any fevers or chills. denies nay significant abd pain TRAVEL OUTSIDE OF THE [place] IN LAST 30 DAYS: No COUNTRY TRAVELED TO/FROM: [facility] Onset: Just prior to arrival Onset/Duration: Sudden Quality of pain: Cramping Severity: Mild Pain Level: Denies Associated symptoms: Diarrhea, Nausea, Vomiting Exacerbated by: Denies Relieved by: Denies Similar symptoms previously: No Recently seen / treated by doctor: No - Related Data Allergies/Adverse Reactions: No Known Allergies Allergy (Verified 08/17/17 12:52) Past Medical History - Social History Smoking Status: Never Smoker Cigarette use (# per day): No Chew tobacco use (# tins/day): No Smoking Education Provided: No Frequency of alcohol use: None Drug Abuse: None Family History: Arthritis, CAD, COPD, DM, Hyperlipidemia, Hypertension, Thyroid Disfunction, Other - Father: CAD; Grandfather: "rare blood disorder". denies: CVA, Malignancy Patient has suicidal ideation: No Patient has homicidal ideation: No - Past Medical History Cardiac Medical History: Reports: Hx Hypercholesterolemia, Hx Hypertension Neurological Medical History: Reports: Hx Migraine Endocrine Medical History: Reports: Hx Diabetes Mellitus Type 2 Renal/ Medical History: Denies: Hx Peritoneal Dialysis GI Medical History: Reports: Hx Gastroesophageal Reflux Disease Musculoskeltal Medical History: Reports Hx Musculoskeletal Deformity, Reports Hx Musculoskeletal Trauma Psychiatric Medical History: Denies: Hx Depression Past Surgical History: Reports: Other - Ears surgery 7 lymph node removed from left arm - Immunizations Immunizations up to date: Yes Hx Diphtheria, Pertussis, Tetanus Vaccination: No Hx Pneumococcal Vaccination: 10/05/13 Review of Systems - Review of Systems Notes: REVIEW OF SYSTEMS: CONSTITUTIONAL : Denies fever, chills, or sweats. Denies recent illness. EENT: Denies eye, ear, throat, or mouth pain or symptoms. Denies nasal or sinus congestion or discharge. Denies throat, tongue, or mouth swelling or difficulty swallowing. CARDIOVASCULAR: Denies chest pain. Denies palpitations or racing or irregular heart beat. Denies ankle edema. RESPIRATORY: Denies cough, cold, or chest congestion. Denies shortness of breath, difficulty breathing, or wheezing. GASTROINTESTINAL: admits to nausea vomiting diarrhea GENITOURINARY: Denies difficulty urinating, painful urination, burning, frequency, blood in urine, or discharge. MUSCULOSKELETAL: Denies back or neck pain or stiffness. Denies joint pain or swelling. SKIN: Denies rash, lesions or sores. HEMATOLOGIC : Denies easy bruising or bleeding. LYMPHATIC: Denies swollen, enlarged glands. NEUROLOGICAL: Denies confusion or altered mental status. Denies passing out or loss of consciousness. Denies dizziness or lightheadedness. Denies headache. Denies weakness or paralysis or loss of use of either side. Denies problems with gait or speech. Denies sensory loss, numbness, or tingling. Denies seizures. PSYCHIATRIC: Denies anxiety or stress. Denies depression, suicidal ideation, or homicidal ideation. ALL OTHER SYSTEMS REVIEWED AND NEGATIVE. Dictation was performed using [employer] voice recognition software PHYSICAL EXAMINATION: GENERAL: Well-appearing, well-nourished and in no acute distress. HEAD: Atraumatic, normocephalic. EYES: Pupils equal round and reactive to light, extraocular movements intact, sclera anicteric, conjunctiva are normal. ENT: Nares patent, oropharynx clear without exudates. Moist mucous membranes. NECK: Normal range of motion, supple without lymphadenopathy LUNGS: Breath sounds clear to auscultation bilaterally and equal. No wheezes rales or rhonchi. HEART: Regular rate and rhythm without murmurs ABDOMEN: Soft, nontender, nondistended abdomen. No guarding, no rebound. No masses appreciated. Musculoskeletal: Normal range of motion, no pitting or edema. No cyanosis. NEUROLOGICAL: Cranial nerves grossly intact. Normal speech, normal gait. Normal sensory, motor exams PSYCH: Normal mood, normal affect. SKIN: Warm, Dry, normal turgor, no rashes or lesions noted. Physical Exam - Vital signs Vitals: Temp Pulse Resp BP Pulse Ox 98.3 F 85 18 136/89 H 96 08/17/17 12:32 08/17/17 12:32 08/17/17 12:32 08/17/17 12:32 08/17/17 12:32 Course - Re-evaluation Re-evalutation: 08/17/17 13:03 pt refuses any workup, will treat patient symptomatically with extremely close follow up After performing a Medical Screening Examination, I estimate there is LOW risk for ACUTE APPENDICITIS, BOWEL OBSTRUCTION, ACUTE CHOLECYSTITIS, PERFORATED DIVERTICULITIS, INCARCERATED HERNIA, PANCREATITIS, TESTICULAR TORSION or PERFORATED ULCER, thus I consider the discharge disposition reasonable. Also, there is no evidence or peritonitis, sepsis, or toxicity. I have reevaluated this patient multiple times and no significant life threatening changes are noted. The patient and I have discussed the diagnosis and risks, and we agree with discharging home with close follow-up with the understanding that symptoms and presentations can change. We also discussed returning to the Emergency Department immediately if new or worsening symptoms occur. We have discussed the symptoms which are most concerning (e.g., bloody stool, fever, changing or worsening pain, intractable vomiting - standard verbal up date) that necessitate immediate return. - Vital Signs Vital signs: Temp Pulse Resp BP Pulse Ox 98.3 F 85 18 136/89 H 96 08/17/17 12:32 08/17/17 12:32 08/17/17 12:32 08/17/17 12:32 08/17/17 12:32 Discharge - Discharge Clinical Impression: Nausea vomiting and diarrhea Condition: Stable Disposition: HOME, SELF-CARE Instructions: Antinausea Medication ([facility]), Diarrhea, Nonspecific ([facility]) Prescriptions: Metoclopramide HCl [Reglan 10 mg Tablet] 1 - 2 tab PO Q6 #14 tablet Forms: Return to Work Referrals: LIZZY KESSLER DO [Primary Care Provider] - Follow up tomorrow
== END 2017-08-17 13:09 | disposition home or self-care (01) ==
LOC: ER 12:21
DX: R11.2 Nausea with vomiting, unspecified (principal); R19.7 Diarrhea, unspecified; I10 Essential (primary) hypertension; E11.9 Type 2 diabetes mellitus without complications
CPT/HCPCS: 99283

== ENCOUNTER 2017-09-07 01:22 | Emergency (ER) | payer MEDICAID ==
[2017-09-07 01:27] VITALS: BP 156/100
[2017-09-07] MEDS ORDERED: LIDOCAINE 2% JELLY 5 ML TUBE TOP ONE (02:21)
--- NOTE | 2017-09-07 02:36 | ER Document Report ---
ED General - General Chief Complaint: Ear Pain Stated Complaint: EAR PAIN Time Seen by Provider: 09/07/17 01:50 Notes: Patient is a 42-year-old male who presents with complaints of an insect lodged in his left ear. He reports that he fell asleep outside and woke up to feel like there was an insect crawling in his ear. He instilled alcohol into the ear as he could feel the insect actively moving around and notes that that sensation has since resolved. He does however note that he continues to have a dull, throbbing, constant pain to the area. Nothing improves or worsens the pain. No history of similar symptoms in the past. He has not seen his general doctor regarding today's concerns. TRAVEL OUTSIDE OF THE [place] IN LAST 30 DAYS: No COUNTRY TRAVELED TO/FROM: [facility] - Related Data Allergies/Adverse Reactions: No Known Allergies Allergy (Verified 08/17/17 12:52) Past Medical History - General Information source: Patient - Social History Smoking Status: Never Smoker Frequency of alcohol use: None Drug Abuse: None Lives with: Family Family History: Arthritis, CAD, COPD, DM, Hyperlipidemia, Hypertension, Thyroid Disfunction, Other - Father: CAD; Grandfather: "rare blood disorder". denies: CVA, Malignancy Patient has suicidal ideation: No Patient has homicidal ideation: No - Past Medical History Cardiac Medical History: Reports: Hx Hypercholesterolemia, Hx Hypertension Neurological Medical History: Reports: Hx Migraine Endocrine Medical History: Reports: Hx Diabetes Mellitus Type 2 Renal/ Medical History: Denies: Hx Peritoneal Dialysis GI Medical History: Reports: Hx Gastroesophageal Reflux Disease Musculoskeletal Medical History: Reports Hx Musculoskeletal Deformity, Reports Hx Musculoskeletal Trauma Psychiatric Medical History: Denies: Hx Depression Past Surgical History: Reports: Other - Ears surgery 7 lymph node removed from left arm - Immunizations Immunizations up to date: Yes Hx Diphtheria, Pertussis, Tetanus Vaccination: No Hx Pneumococcal Vaccination: 10/05/13 Review of Systems - Review of Systems Notes: Constitutional: Negative for fever. HENT: Positive for foreign body in the left ear Eyes: Negative for visual changes. Cardiovascular: Negative for chest pain. Respiratory: Negative for shortness of breath. Gastrointestinal: Negative for abdominal pain, vomiting or diarrhea. Genitourinary: Negative for dysuria. Musculoskeletal: Negative for back pain. Skin: Negative for rash. Neurological: Negative for headaches, weakness or numbness. 10 point ROS negative except as marked above and in HPI. Physical Exam - Vital signs Vitals: Temp Pulse Resp BP Pulse Ox 97.6 F 97 16 156/100 H 97 09/07/17 01:25 09/07/17 01:25 09/07/17 01:25 09/07/17 01:09/07/17 01:25 Interpretation: Hypertensive Notes: PHYSICAL EXAMINATION: GENERAL: Well-appearing, well-nourished and in no acute distress. HEAD: Atraumatic, normocephalic. EYES: sclera anicteric, conjunctiva are normal. ENT: Moist mucous membranes. There is an insect lodged against the tympanic membrane of the left ear with associated erythema of the external ear canal. NECK: Normal range of motion LUNGS: Normal work of breathing HEART: 2+ radial pulses bilaterally EXTREMITIES: no pitting or edema. No cyanosis. NEUROLOGICAL: No focal neurological deficits. Moves all extremities spontaneously and on command. PSYCH: Normal mood, normal affect. SKIN: Warm, Dry, normal turgor, no rashes or lesions noted. Course - Re-evaluation Re-evalutation: 09/07/17 02:32 Patient presents with an insect inside his left ear canal. He did instill alcohol into the ear canal and it appears that the bug is and initial otoscopic examination. Viscous lidocaine was also instilled into the ear canal to ensure that the insect does not survive. However, insect is very deep within the ear canal directly abutted to the tympanic membrane and does not appear like it would be able to be retrieved. I have therefore instructed the patient to irrigate his ear twice daily with hydrogen peroxide and water combination until the bug is completely removed. At this time will discharge with return precautions and follow-up recommendations. Verbal discharge instructions given a the bedside and opportunity for questions given. Medication warnings reviewed. Patient is in agreement with this plan and has verbalized understanding of return precautions and the need for primary care follow-up in the next 24-72 hours. - Vital Signs Vital signs: Temp Pulse Resp BP Pulse Ox 97.6 F 97 16 156/100 H 97 09/07/17 01:25 09/07/17 01:25 09/07/17 01:25 09/07/17 01:25 09/07/17 01:25 Discharge - Discharge Clinical Impression: Foreign body in left ear Qualifiers: Encounter type: initial encounter Qualified Code(s): T16.2XXA - Foreign body in left ear, initial encounter Condition: Good Disposition: HOME, SELF-CARE Additional Instructions: Please irrigate your ear twice daily using a 50-50 mixture of hydrogen peroxide and water. Over the course the next several days this should decomposed integrated the body of the insect and allowed to freely flush out of your ear. Please return if you have worsening of pain to the ear, discharge from the ear, fever greater than 100.4F, or any other symptoms that are worrisome to you. Referrals: LIZZY KESSLER DO [Primary Care Provider] - Follow up as needed
== END 2017-09-07 02:50 | disposition home or self-care (01) ==
LOC: ER 01:22
DX: T16.2XXA Foreign body in left ear, initial encounter (principal); X58.XXXA Exposure to other specified factors, initial encounter; I10 Essential (primary) hypertension; E11.9 Type 2 diabetes mellitus without complications
CPT/HCPCS: 99282; J3490

== ENCOUNTER 2018-08-21 09:52 | Emergency (ER) | payer MEDICAID ==
[2018-08-21 09:58] VITALS: BP 148/93
[2018-08-21] MEDS ORDERED: SULFAMETHOXAZOLE/TRIMETHOPRIM 800-160 MG TABLET PO ONE (10:19)
[2018-08-21] MEDS ORDERED: CEPHALEXIN 500 MG CAPSULE PO ONE (10:19)
[2018-08-21] MEDS ORDERED: DOXYCYCLINE HYCLATE 100 MG TABLET PO ONE (10:23)
--- NOTE | 2018-08-21 10:25 | ER Document Report ---
HPI - HPI Patient complains to provider of: leg wound Time Seen by Provider: 08/21/18 09:59 Onset: Last week Onset/Duration: Worse Quality of pain: Achy Pain Level: 2 Context: Patient states that he bent down onto the hot sand last week and injured his leg. Patient states initially he thought he may have burned his leg. Patient states he did squeeze on the wound. Patient states he has been cleaning the wound daily with peroxide and alcohol. Patient states that the area is starting to become red and warm to the touch. No fever. Patient is diabetic and sugars have been running in the normal range for him. Associated Symptoms: Other - Left leg wound. denies: Fever Exacerbated by: Movement Relieved by: Denies Similar symptoms previously: No Recently seen / treated by doctor: No - ROS ROS below otherwise negative: Yes Systems Reviewed and Negative: Yes All other systems reviewed and negative - CONSTITUTIONAL Constitutional: DENIES: Fever, Chills - NEURO Neurology: DENIES: Weakness - REPRODUCTIVE Reproductive: DENIES: : - MUSCULOSKELETAL Musculoskeletal: REPORTS: Extremity pain - DERM Skin Color: Normal Skin Problems: Open to Air Past Medical History - General Information source: Patient - Social History Smoking Status: Never Smoker Smoking Education Provided: No Frequency of alcohol use: None Drug Abuse: None 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 denies: CVA, Malignancy Patient has suicidal ideation: No Patient has homicidal ideation: No - Past Medical History Cardiac Medical History: Reports: Hx Hypercholesterolemia, Hx Hypertension Neurological Medical History: Reports: Hx Migraine Endocrine Medical History: Reports: Hx Diabetes Mellitus Type 2 Renal/ Medical History: Denies: Hx Peritoneal Dialysis GI Medical History: Reports: Hx Gastroesophageal Reflux Disease Musculoskeletal Medical History: Reports Hx Musculoskeletal Deformity, Reports Hx Musculoskeletal Trauma Psychiatric Medical History: Denies: Hx Depression Past Surgical History: Reports: Other - Ears surgery 7 lymph node removed from left arm - Immunizations Immunizations up to date: Yes Hx Diphtheria, Pertussis, Tetanus Vaccination: No Hx Pneumococcal Vaccination: 10/05/13 Vertical Provider Document - CONSTITUTIONAL Agree With Documented VS: Yes Exam Limitations: No Limitations General Appearance: WD/WN, No Apparent Distress - INFECTION CONTROL TRAVEL OUTSIDE OF THE [place] IN LAST 30 DAYS: No - HEENT HEENT: Atraumatic, Normocephalic - NECK Neck: Normal Inspection - RESPIRATORY Respiratory: No Respiratory Distress - CARDIOVASCULAR Pulses: Normal: Posterior tibial - MUSCULOSKELETAL/EXTREMETIES Musculoskeletal/Extremeties: HO JONES - NEURO Level of Consciousness: Awake, Alert, Appropriate Motor/Sensory: No Motor Deficit - DERM Integumentary: Warm, Dry. negative: Abscess Adult Front & Back Diagram: 1 - Open wound to anterior aspect of left leg with surrounding erythema and warmth, no purulent drainage Course - Vital Signs Vital signs: Temp Pulse Resp BP Pulse Ox 98.3 F 77 18 148/93 H 97 08/21/18 09:56 08/21/18 09:56 08/21/18 09:56 08/21/18 09:56 08/21/18 09:56 Discharge - Discharge Clinical Impression: Leg wound, left Qualifiers: Encounter type: initial encounter Qualified Code(s): S81.802A - Unspecified open wound, left lower leg, initial encounter Condition: Stable Disposition: HOME, SELF-CARE Instructions: Doxycycline ([facility]), Dressing Instructions for Open Wounds ([facility]) Additional Instructions: Return immediately for any new or worsening symptoms Followup with your primary care provider, call tomorrow to make a followup appointment Cleanse wound with an antibacterial soap. Avoid use of peroxide to cleanse wound Prescriptions: Doxycycline Hyclate 100 mg PO BID #14 capsule Mupirocin [Bactroban 2% Ointment 22 gm] 1 applic TP BID #22 gm Forms: Smoking Cessation Education Referrals: LIZZY KESSLER DO [Primary Care Provider] - Follow up as needed
== END 2018-08-21 10:31 | disposition home or self-care (01) ==
LOC: ER 09:52
DX: S81.802A Unspecified open wound, left lower leg, initial encounter (principal); X58.XXXA Exposure to other specified factors, initial encounter; E78.00 Pure hypercholesterolemia, unspecified; I10 Essential (primary) hypertension; E11.9 Type 2 diabetes mellitus without complications
CPT/HCPCS: 99283; J3490

== ENCOUNTER 2018-09-28 15:00 | Emergency (ER) | payer MEDICAID ==
[2018-09-28 15:28] VITALS: BP 133/87
== END 2018-09-28 17:15 | disposition left against medical advice (07) ==
LOC: ER 15:00
DX: Z53.21 Procedure and treatment not carried out due to patient leaving prior to being seen by health care provider (principal)